=== PATIENT | male | born 1965 | race Caucasian/White ===

== ENCOUNTER 2023-10-04 18:41 | Inpatient (IN) ==
--- NOTE | 2023-10-04 19:38 | XRay Report ---
SINGLE VIEW CHEST CLINICAL HISTORY: Illness. Fever. FINDINGS: An AP upright chest radiograph is obtained. No prior studies are available for comparison a t the time of dictation. The cardiomediastinal silhouette is unremarkable. There are left basilar opa cities. No large pleural effusion or pneumothorax is seen. The bony thorax is grossly intact. IMPRESSION: Airspace opacities at the left lung base could represent atelectasis versus an infectious /inflammatory pneumonitis. Clinical correlation will be required and radiographic follow-up to resolu tion is recommended. ACT 112: Negative or not required by law. Electronically signed by: Richard López M.D. 10/04/2023 7:37 PM
[2023-10-04 20:21] LABS: Appearance Urine Clear (Clear); Bacteria Urine Automated Negative (Negative); Bilirubin Urine Negative (Negative); Blood Urine Trace (Negative); Cast Urine Automated 0 /lpf (0-5); Color Urine Yellow; Epithelial Cell Urine Auto 0-5 /lpf (0-5); Glucose Urine UA Negative (Negative); Ketones Urine Negative (Negative); Leukocyte Esterase Urine Negative (Negative); Nitrite Urine Negative (Negative); Protein Urine Negative (Negative); RBC Urine Automated 0-4 /hpf (0-4); Urobilinogen Urine Negative (Negative); WBC Urine Automated 0 /hpf (0-5)
[2023-10-04] MEDS: SODIUM CHLORIDE 0.9% 1,000 ML IV ONE (22:08)
[2023-10-04] MEDS: ACETAMINOPHEN 1,000 MG/100 ML VIAL IV STA (22:13)
--- NOTE | 2023-10-04 23:00 | Emergency Department Note ---
History of Present Illness General Chief complaint: Illness Stated complaint: GOT 2 VACCINES BODY HURTS ALL OVER, ABNORMAL LABS Time Seen by Provider: 10/04/23 21:28 History of Present Illness Maximum Pain Intensity: 10 This 58-year-old prisoner presents the ER complaining of generalized weakness and difficulty ambulating after receiving 2 vaccines yesterday. He got the pneumonia and shingles vaccine. 1 in each arm. He states after receiving the vaccines his arms are sore and to have his cellmate rub his arms with muscle cream. He states since then he has had increasing pain and weakness from his legs to his head. Patient denies back pain, trauma to the area, vomiting, diarrhea, vision problems. Past Med/Surg History Social History Smoking Status: Former smoker Tobacco Type: Cigarettes Preferred Language: Vietnamese Feels Safe at Home: Yes Review of Systems A total of 10 systems reviewed and were otherwise negative Physical Exam Vital Signs Vital Signs - 24 hr 10/04/23 18:57 10/05/23 00:00 10/05/23 02:00 Temperature 38.0 C H Temperature Source Temporal Artery Scan Pulse Rate 110 H Pulse Rate [Right Finger] 96 H 75 Respiratory Rate 18 16 16 Respiratory Effort / Characteristics Non-Labored Spontaneous Non-Labored Spontaneous Non-Labored Spontaneous Respiratory Depth Normal Normal Normal Respiratory Pattern Regular Regular Regular Blood Pressure 172/96 H Blood Pressure [Right Arm] 116/87 119/76 Blood Pressure Mean 121 Blood Pressure Mean [Right Arm] 96 90 Blood Pressure Position Sitting Pulse Oximetry 94 98 98 Oxygen Delivery Method Room Air Room Air Room Air Sepsis Recent Fever Within 48 Hours No Sepsis New/Unexplained Change in Mental Status N/A Sepsis Action Taken by Nursing No Action Required VITALS: Vitals are noted on the nurse's note and reviewed by myself. Vital signs reviewed. GENERAL: White male in shackles quite talkative moving arms without difficulties, in no acute distress, nondiaphoretic, well-developed well- nourished. SKIN: The skin was without rashes, erythema, edema, or bruising. There is no tenting of the skin. Capillary reflex less than 2 seconds. HEAD: Normocephalic atraumatic. EARS: External auditory canals clear EYES: Pupils equal round and reactive to light and accommodation. Conjunctivae without injection, sclerae without icterus. Extraocular movements intact. NOSE: Patent, no discharge. MOUTH: Mucous membranes moist. Pharynx without erythema or exudate. Uvula midline. Airway patent. Tongue does not deviate. NECK: Supple without nuchal rigidity. No lymphadenopathy. No thyromegaly. Cervical spine is nontender. No JVD. HEART: Regular rate and rhythm LUNGS: Clear to auscultation bilaterally without wheezes, rales or rhonchi. No retractions or accessory muscle use. ABDOMEN: Positive bowel sounds x 4. Normal tympanic percussion. Soft, nontender, without masses or organomegaly. Flores sign negative. No guarding or rebound tenderness. No CVA tenderness MUSCULOSKELETAL: No muscle atrophy, erythema, or edema noted. Patient states he is unable to lift his legs. When I lift the legs they dropped to the ground. He is moving his arms without difficulties. He is able to feel me squeezed his cast without difficulty. NEURO: Patient was alert and oriented to person place and time. Normal sensation to light and sharp touch. No focal neurological deficits. Reflexes +2 to the lower extremities bilaterally. Course Administered Medications Discontinued Medications Sodium Chloride (Nss) 1,000 mls @ 999 mls/hr IV .Q1H1M ONE Stop: 10/04/23 22:45 Last Infusion: 10/05/23 01:58 Dose: Infused Documented By: Admin: 10/04/23 22:08 Dose: 999 mls/hr Documented By: BRANDO Acetaminophen (Ofirmev) 1,000 mg in 100 mls @ 400 mls/hr IV NOW STA Stop: 10/04/23 22:23 Last Infusion: 10/04/23 22:29 Dose: Infused Documented By: Admin: 10/04/23 22:13 Dose: 400 mls/hr Documented By: BRANDO Acetaminophen (Ofirmev) 1,000 mg in 100 mls @ 400 mls/hr IV NOW STA Stop: 10/05/23 00:39 Last Infusion: 10/05/23 01:31 Dose: Infused Documented By: Admin: 10/05/23 01:04 Dose: 400 mls/hr Documented By: FLORIAN Ioversol (Optiray 320 125ml) 116 ml IV ONCE ONE Stop: 10/05/23 00:26 Last Admin: 10/05/23 00:26 Dose: 116 ml Documented By: PENNIE Medical Decision Making Medical Records Attestation: I reviewed the patient's medical records. Home Medications Current Medication List: was personally reviewed by me Laboratory Data Attestation: I reviewed the patient's lab results. 10/04/23 22:44 10/04/23 22:44 Lab Results 10/04/23 10/04/23 10/05/23 Range/Units 20:00 22:44 00:03 WBC 14.43 H (4.8-10.8) K/ul RBC 4.53 L (4.70-6.10) M/uL Hgb 14.7 (14.0-18.0) g/dl Hct 41.3 L (42.0-52.0) % MCV 91.2 (80.0-100.0) fL MCH 32.5 (25.0-34.0) pg MCHC 35.6 (32.0-36.0) g/dL RDW Std Deviation 42.6 (36.4-46.3) fL RDW Coeff of Luke 12.8 (11.5-14.5) % Plt Count 391 (130-400) K/uL MPV 10.3 (9.4-12.4) fL Immature Gran % (Auto) 0.3 % Neut % (Auto) 82.2 % Lymph % (Auto) 9.8 % [place] % (Auto) 7.3 % Eos % (Auto) 0.1 % Baso % (Auto) 0.3 % Neut # (Auto) 11.86 H (1.40-6.50) K/uL Lymph # (Auto) 1.42 (1.20-3.40) K/uL [place] # (Auto) 1.05 H (0.11-0.59) K/uL Eos # (Auto) 0.01 (0.00-0.50) K/uL Baso # (Auto) 0.04 (0.00-0.20) K/uL Immature Gran # (Auto) 0.05 (0.01-0.20) K/uL ESR 28 H (0-20) mm/hr PT 11.5 (9.0-12.0) Seconds INR 1.1 (0.9-1.1) APTT 27 (21-31) Seconds PTT Ratio 1.0 Sodium 134 L (136-145) mmol/L Potassium 4.2 (3.5-5.1) mmol/L Chloride 103 (98-107) mmol/L Carbon Dioxide 23 (21-32) mmol/L Anion Gap 8 (3-11) BUN 11 (6-23) mg/dl Creatinine 0.99 (0.6-1.4) mg/dl Est Cr Clr Drug Dosing Not Reportable Est GFR ( Amer) 95.5 ml/min Est GFR (Non-Af Amer) 82.4 ml/min BUN/Creatinine Ratio 11.1 (10-20) Glucose 122 H (70-99(Fasting)) mg/dl Lactate 1.2 (0.4-2.0) mmol/L Calcium 9.5 (8.6-10.3) mg/dl Total Bilirubin 0.4 (0.2-1.0) mg/dl AST 15 (13-39) U/L ALT 13 (7-52) U/L Alkaline Phosphatase 66 (34-104) U/L Total Creatine Kinase 62 (30-223) U/L Troponin I High Sens 7.6 (0-20) pg/ml Total Protein 7.5 (6.0-8.3) gm/dl Albumin 4.5 (3.4-5.0) gm/dl Globulin 3.0 (2.5-4.0) gm/dl Albumin/Globulin Ratio 1.5 (0.9-2) Procalcitonin 0.09 (0-0.5) ng/ml Urine Color Yellow Urine Appearance Clear (Clear) Urine pH 8.0 H (4.5-7.5) Ur Specific [place] 1.010 (1.000-1.030) Urine Protein Negative (Negative) Urine Glucose (UA) Negative (Negative) Urine Ketones Negative (Negative) Urine Blood Trace H (Negative) Urine Nitrite Negative (Negative) Urine Bilirubin Negative (Negative) Urine Urobilinogen Negative (Negative) Ur Leukocyte Esterase Negative (Negative) Urine WBC (Auto) 0 (0-5) /hpf Urine RBC (Auto) 0-4 (0-4) /hpf U Hyaline Cast (Auto) 0 (0-5) /lpf U Epithel Cells (Auto) 0-5 (0-5) /lpf Urine Bacteria (Auto) Negative (Negative) Imaging Data Attestation: I personally reviewed and interpreted this imaging study as follows: Radiologist's Impression: Chest X-Ray 10/04/23 19:03 SINGLE VIEW CHEST CLINICAL HISTORY: Illness. Fever. FINDINGS: An AP upright chest radiograph is obtained. No prior studies are available for comparison at the time of dictation. The cardiomediastinal silhouette is unremarkable. There are left basilar opacities. No large pleural effusion or pneumothorax is seen. The bony thorax is grossly intact. IMPRESSION: Airspace opacities at the left lung base could represent atelectasis versus an infectious/inflammatory pneumonitis. Clinical correlation will be required and radiographic follow-up to resolution is recommended. ACT 112: Negative or not required by law. Electronically signed by: Richard López M.D. 10/04/2023 7:37 PM Abdomen/Pelvis CT 10/04/23 21:45 Exam(s): CT ABDOMEN + PELVIS With Contrast IV Amt: 116 ML OPTIRAY 320 EXAM: CT Abdomen and Pelvis With Intravenous Contrast CLINICAL HISTORY: Reason for exam: severe pain. TECHNIQUE: Axial computed tomography images of the abdomen and pelvis with intravenous contrast. CTDI is 26.51 mGy and DLP is 1412.83 mGy-cm. Automated exposure control was utilized for the study. A dose lowering technique was utilized adhering to the principles of ALARA. CONTRAST: Patient received 116 ML OPTIRAY 320 of IV contrast COMPARISON: No relevant prior studies available. FINDINGS: ABDOMEN: Liver: Unremarkable. Gallbladder and bile ducts: Status post cholecystectomy. Pancreas: Unremarkable. Spleen: Unremarkable. Adrenals: Unremarkable. Kidneys and ureters: Unremarkable. No obstructing stones. No hydronephrosis. Stomach and bowel: Unremarkable. PELVIS: Appendix: No findings to suggest acute appendicitis. Bladder: Unremarkable. Reproductive: Unremarkable as visualized. ABDOMEN and PELVIS: Intraperitoneal space: Unremarkable. No free air. No significant fluid collection. Bones/joints: No acute fracture. Soft tissues: Unremarkable. Vasculature: Unremarkable. Lymph nodes: Unremarkable. IMPRESSION: No acute abnormality within the abdomen or pelvis. Electronically signed by: Carlos Field MD 10/05/23 00:43 AM Chest CTA 10/04/23 21:45 Exam(s): CTA CHEST IV Amt: 116 ML OPTIRAY 320 EXAM: CT Angiography Chest With Intravenous Contrast CLINICAL HISTORY: Reason for exam: PE, 2 vax yesterday. TECHNIQUE: Axial computed tomographic angiography images of the chest with intravenous contrast. CTDI is 27.17 mGy and DLP is 938.39 mGy-cm. Automated exposure control was utilized for the study. A dose lowering technique was utilized adhering to the principles of ALARA. MIP reconstructed images were created and reviewed. COMPARISON: No relevant prior studies available. FINDINGS: Pulmonary arteries: No pulmonary embolism. Aorta: No acute findings. Normal caliber. No dissection. Lungs: Unremarkable. Pleural space: Unremarkable. Heart: Unremarkable. Thyroid: Left thyroid nodule measuring 2 cm. Bones/joints: No acute fracture. Soft tissues: Unremarkable. Lymph nodes: Unremarkable. IMPRESSION: 1. No pulmonary embolism. 2. No acute abnormality within the lungs. 3. Left thyroid nodule measuring 2 cm. Consider nonemergent outpatient thyroid ultrasound. Electronically signed by: Carlos Field MD 10/05/23 00:[address] 10/04/23 21:45 Exam(s): CT HEAD Without Contrast EXAM: CT Head Without Intravenous Contrast CLINICAL HISTORY: Reason for exam: can't walk. 2 vaccines yesterday. TECHNIQUE: Axial computed tomography images of the head/brain without intravenous contrast. CTDI is 36.9 mGy and DLP is 624.41 mGy-cm. Automated exposure control was utilized for the study. A dose lowering technique was utilized adhering to the principles of ALARA. COMPARISON: No relevant prior studies available. FINDINGS: Brain: No hemorrhage, extra-axial fluid collection, mass effect, or edema. Ventricles: Unremarkable. Bones/joints: Unremarkable. No fracture. Soft tissues: Unremarkable. Sinuses: No acute sinusitis. Mastoid air cells: Unremarkable as visualized. IMPRESSION: 1. No acute intracranial abnormality. Electronically signed by: Carlos Field MD 10/05/23 00:42 AM MDM Narrative Prior records/ancillary studies reviewed and summarized above. Nursing notes reviewed. Additional history obtained from correctional officers. The patient's history was concerning for increasing weakness after receiving 2 vaccines. Differential diagnosis: Etiologies such as attention seeking behavior, Guillain-Cole, complication of vaccines, metabolic, infection, hypo/hyperglycemia, electrolyte abnormalities, cardiac sources, intracerebral event, toxicologic, neurologic, as well as others were entertained. Physical examination: As above. ER treatment provided: IV Lock An order was placed for continuous cardiac monitoring. The monitor shows a rate of 60-1 20 with a sinus rhythm per my interpretation. IV fluids and Tylenol ordered On reassessment the patient felt better. Diagnostics interpretation by me: ECG: Ordered for chest pain EKG: Normal sinus, normal intervals, no acute ST-T wave changes. Impression sinus tachycardia 108 independent interpreted by myself The labs Independently Interpreted by myself revealed mild leukocytosis, normal coags, normal LFTs, normal CPK, negative urine Negative lactic Imaging studies: CTs as above I attempted to do the LP on the patient and he adamantly refused once I placed the spinal needle in. He is adamantly refusing the procedure and verbalized understanding that I cannot rule out Guillain-Cole without doing this. He states he does not care and does not want the lumbar puncture. Patient was consented to the lumbar puncture procedure. All questions were answered. Nurse Sen was present. Consultation: A consultation was placed with the hospitalist. The case was discussed and diagnostics were reviewed. The patient was evaluated in the ER for further treatment. Exam and history seem consistent with reported leg weakness. Patient also states that everything hurt on him. I did inform him that most likely he is feeling this way secondary to receiving both vaccines yesterday. Patient was able to get up and go to the bathroom with assistance once he refused a lumbar puncture. He was able to walk back from the bathroom without assistance per nursing staff. He still states his legs felt weak. Medicine was consulted and case was discussed. He will be admitted for further evaluation and workup. Imaging was negative. Stable labs. By the evaluation outlined above emergent etiologies such as electrolyte abnormalities, cardiac sources, intracerebral event, toxologic, abnormalities blood glucose, metabolic, as well as others were deemed relatively unlikely. The pt informed about the findings as listed above. All questions were answered and pleased with the treatment. The chart was completed utilizing [email or web address] Speech voice recognition software. Grammatical errors, random word insertions, pronoun errors, and incomplete sentences are an occassional consequence of this system due to software limitations, ambient noise, and hardware issues. Any formal questions or concerns about the content, text, or information contained within the body of this dictation should be directly addressed to the physician assistant kitchen manager for clarification. Impression & Plan Bilateral leg weakness, Chest pain, Abdominal pain Discharge Plan Visit Data Chief Complaint: Illness Stated Complaint: GOT 2 VACCINES BODY HURTS ALL OVER, ABNORMAL LABS ED Provider: Kota Longoria ED Midlevel Provider: Randa Julio Discharge Problem: Bilateral leg weakness, Chest pain, Abdominal pain Patient Disposition: Admitted As Inpatient Condition: Fair Forms Stand Alone Forms: [facility] Referrals Referrals: Immanuel KAY [Primary Care Provider] -
[2023-10-04 23:07] LABS: Basophils # (auto) 0.04 K/uL (0.00-0.20); Basophils % (auto) 0.3 %; Eosinophils # (auto) 0.01 K/uL (0.00-0.50); Eosinophils % (auto) 0.1 %; Hematocrit (blood only) 41.3 % (42.0-52.0); Hemoglobin 14.7 g/dl (14.0-18.0); Immature Granulocytes # (auto) 0.05 K/uL (0.01-0.20); Immature Granulocytes % (auto) 0.3 %; Lymphocytes # (auto) 1.42 K/uL (1.20-3.40); Lymphocytes % (auto) 9.8 %; Mean Corpuscular Hemoglobin 32.5 pg (25.0-34.0); Mean Corpuscular Hgb Conc 35.6 g/dL (32.0-36.0); Mean Corpuscular Volume 91.2 fL (80.0-100.0); Mean Platelet Volume 10.3 fL (9.4-12.4); Monocytes # (auto) 1.05 K/uL (0.11-0.59); Monocytes % (auto) 7.3 %; Neutrophils # (auto) 11.86 K/uL (1.40-6.50); Neutrophils % (auto) 82.2 %; Platelet Count 391 K/uL (130-400); RDW Coefficient of Variation 12.8 % (11.5-14.5); RDW Standard Deviation 42.6 fL (36.4-46.3); Red Blood Count 4.53 M/uL (4.70-6.10); White Blood Count 14.43 K/ul (4.8-10.8)
[2023-10-04 23:20] LABS: Alanine Aminotransferase 13 U/L (7-52); Albumin Globulin Ratio 1.5 (0.9-2); Albumin Level 4.5 gm/dl (3.4-5.0); Alkaline Phosphatase 66 U/L (34-104); Anion Gap 8 (3-11); Aspartate Aminotransferase 15 U/L (13-39); BUN Creatinine Ratio 11.1 (10-20); Bilirubin,Total 0.4 mg/dl (0.2-1.0); Blood Urea Nitrogen 11 mg/dl (6-23); Calcium 9.5 mg/dl (8.6-10.3); Carbon Dioxide 23 mmol/L (21-32); Chloride 103 mmol/L (98-107); Est GFR (African American) 95.5 ml/min; Est GFR (Non-African American) 82.4 ml/min; Glucose 122 mg/dl (70-99(Fasting)); Potassium 4.2 mmol/L (3.5-5.1); Sodium 134 mmol/L (136-145); Total Protein 7.5 gm/dl (6.0-8.3)
[2023-10-04 23:25] LABS: Troponin I High Sensitivity 7.6 pg/ml (0-20)
[2023-10-04 23:32] LABS: INR 1.1 (0.9-1.1); Partial Thromboplastin Time 27 Seconds (21-31); Prothrombin Time 11.5 Seconds (9.0-12.0)
[2023-10-05] MEDS: OPTIRAY 320 125ml IV ONE ×2 (00:26→17:00)
--- NOTE | 2023-10-05 00:42 | CT Scan Report ---
Exam(s): CT HEAD Without Contrast EXAM: CT Head Without Intravenous Contrast CLINICAL HISTORY: Reason for exam: can't walk. 2 vaccines yesterday. TECHNIQUE: Axial computed tomography images of the head/brain without intravenous contrast. CTDI is 36.9 mGy and DLP is 624.41 mGy-cm. Automated exposure control was utilized for the study. A dose lowering technique was utilized adhering to the principles of ALARA. COMPARISON: No relevant prior studies available. FINDINGS: Brain: No hemorrhage, extra-axial fluid collection, mass effect, or edema. Ventricles: Unremarkable. Bones/joints: Unremarkable. No fracture. Soft tissues: Unremarkable. Sinuses: No acute sinusitis. Mastoid air cells: Unremarkable as visualized. IMPRESSION: 1. No acute intracranial abnormality. Electronically signed by: Carlos Field MD 10/05/23 00:42 AM
--- NOTE | 2023-10-05 00:44 | CT Scan Report ---
Exam(s): CT ABDOMEN + PELVIS With Contrast IV Amt: 116 ML OPTIRAY 320 EXAM: CT Abdomen and Pelvis With Intravenous Contrast CLINICAL HISTORY: Reason for exam: severe pain. TECHNIQUE: Axial computed tomography images of the abdomen and pelvis with intravenous contrast. CTDI is 26.51 mGy and DLP is 1412.83 mGy-cm. Automated exposure control was utilized for the study. A dose lowering technique was utilized adhering to the principles of ALARA. CONTRAST: Patient received 116 ML OPTIRAY 320 of IV contrast COMPARISON: No relevant prior studies available. FINDINGS: ABDOMEN: Liver: Unremarkable. Gallbladder and bile ducts: Status post cholecystectomy. Pancreas: Unremarkable. Spleen: Unremarkable. Adrenals: Unremarkable. Kidneys and ureters: Unremarkable. No obstructing stones. No hydronephrosis. Stomach and bowel: Unremarkable. PELVIS: Appendix: No findings to suggest acute appendicitis. Bladder: Unremarkable. Reproductive: Unremarkable as visualized. ABDOMEN and PELVIS: Intraperitoneal space: Unremarkable. No free air. No significant fluid collection. Bones/joints: No acute fracture. Soft tissues: Unremarkable. Vasculature: Unremarkable. Lymph nodes: Unremarkable. IMPRESSION: No acute abnormality within the abdomen or pelvis. Electronically signed by: Carlos Field MD 10/05/23 00:43 AM
--- NOTE | 2023-10-05 00:46 | CT Scan Report ---
Exam(s): CTA CHEST IV Amt: 116 ML OPTIRAY 320 EXAM: CT Angiography Chest With Intravenous Contrast CLINICAL HISTORY: Reason for exam: PE, 2 vax yesterday. TECHNIQUE: Axial computed tomographic angiography images of the chest with intravenous contrast. CTDI is 27.17 mGy and DLP is 938.39 mGy-cm. Automated exposure control was utilized for the study. A dose lowering technique was utilized adhering to the principles of ALARA. MIP reconstructed images were created and reviewed. COMPARISON: No relevant prior studies available. FINDINGS: Pulmonary arteries: No pulmonary embolism. Aorta: No acute findings. Normal caliber. No dissection. Lungs: Unremarkable. Pleural space: Unremarkable. Heart: Unremarkable. Thyroid: Left thyroid nodule measuring 2 cm. Bones/joints: No acute fracture. Soft tissues: Unremarkable. Lymph nodes: Unremarkable. IMPRESSION: 1. No pulmonary embolism. 2. No acute abnormality within the lungs. 3. Left thyroid nodule measuring 2 cm. Consider nonemergent outpatient thyroid ultrasound. Electronically signed by: Carlos Field MD 10/05/23 00:44 AM
[2023-10-05 00:59] LABS: Creatine Kinase 62 U/L (30-223)
[2023-10-05] MEDS: ACETAMINOPHEN 1,000 MG/100 ML VIAL IV STA (01:04)
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
[2023-10-05] MEDS: traZODone HCL 50 MG TAB PO STA (03:48)
[2023-10-05] MEDS: OXcarbazepine 150 MG TABLET PO STA (03:48)
[2023-10-05] MEDS: TAMSULOSIN HCL 0.4 MG CAP PO ONE (03:48)
[2023-10-05] MEDS: DOXEPIN HCL 50 MG CAPSULE PO STA (03:48)
[2023-10-05] MEDS: KETOROLAC TROMETHAMINE 15 MG/ML VIAL IV ONE (03:49)
[2023-10-05] MEDS ORDERED: ALBUTEROL HFA 8 GM INHALER INH PRN (04:07)
[2023-10-05] MEDS ORDERED: NITROGLYCERIN SL 0.4 MG/TAB TAB SL PRN (04:07)
[2023-10-05] MEDS ORDERED: ONDANSETRON INJ 2 MG/ML 2 ML VIAL IV PRN (04:07)
[2023-10-05] MEDS: SODIUM CHLORIDE 0.9% 1,000 ML IV SCH (04:26)
[2023-10-05 04:45] LABS: Basophils # (auto) 0.04 K/uL (0.00-0.20); Basophils % (auto) 0.3 %; Eosinophils # (auto) 0.01 K/uL (0.00-0.50); Eosinophils % (auto) 0.1 %; Hematocrit (blood only) 41.7 % (42.0-52.0); Hemoglobin 14.5 g/dl (14.0-18.0); Immature Granulocytes # (auto) 0.08 K/uL (0.01-0.20); Immature Granulocytes % (auto) 0.5 %; Lymphocytes # (auto) 1.46 K/uL (1.20-3.40); Mean Corpuscular Hemoglobin 31.9 pg (25.0-34.0); Mean Corpuscular Hgb Conc 34.8 g/dL (32.0-36.0); Mean Corpuscular Volume 91.9 fL (80.0-100.0); Monocytes # (auto) 1.45 K/uL (0.11-0.59); Monocytes % (auto) 9.9 %; Neutrophils # (auto) 11.58 K/uL (1.40-6.50); Neutrophils % (auto) 79.2 %; Platelet Count 375 K/uL (130-400); RDW Standard Deviation 43.7 fL (36.4-46.3); Red Blood Count 4.54 M/uL (4.70-6.10); White Blood Count 14.62 K/ul (4.8-10.8)
[2023-10-05 04:58] LABS: Albumin Level 4.3 gm/dl (3.4-5.0); BUN Creatinine Ratio 11.8 (10-20); Bilirubin Direct 0.1 mg/dl (0-0.2); Bilirubin,Total 0.5 mg/dl (0.2-1.0); Calcium 9.5 mg/dl (8.6-10.3); Creatinine Clr Calc Pharmacy 89.4 ml/min; Est GFR (African American) 103.1 ml/min; Est GFR (Non-African American) 88.9 ml/min; Magnesium 1.9 mg/dl (1.7-2.4); Potassium 4.2 mmol/L (3.5-5.1); Total Protein 7.3 gm/dl (6.0-8.3)
[2023-10-05 05:34] LABS: Adenovirus PCR Not Detected (NotDetected); Bordetella parapertussis PCR Not Detected (NotDetected); Bordetella pertussis PCR Not Detected (NotDetected); Chlamydia pneumoniae PCR Not Detected (NotDetected); Coronavirus 229E PCR Not Detected (NotDetected); Coronavirus CoV-2 (COVID19)PCR Not Detected (NotDetected); Coronavirus HKU1 PCR Not Detected (NotDetected); Coronavirus NL63 PCR Not Detected (NotDetected); Coronavirus OC43PCR Not Detected (NotDetected); Human Metapneumovirus PCR Not Detected (NotDetected); Influenza A PCR Not Detected (NotDetected); Influenza B PCR Not Detected (NotDetected); Mycoplasma pneumoniae PCR Not Detected (NotDetected); Parainfluenza Virus 1 PCR Not Detected (NotDetected); Parainfluenza Virus 2 PCR Not Detected (NotDetected); Parainfluenza Virus 3 PCR Not Detected (NotDetected); Parainfluenza Virus 4 PCR Not Detected (NotDetected); Respiratory Syncytial VirusPCR Not Detected (NotDetected); Rhinovirus/Enterovirus PCR Not Detected (NotDetected)
[2023-10-05] MEDS: ENOXAPARIN INJ 40 MG/0.4 ML SYR SQ SCH (09:15)
[2023-10-05] MEDS: MONTELUKAST SODIUM 10 MG TABLET PO SCH (09:16)
[2023-10-05] MEDS: DOXEPIN HCL 25 MG CAPSULE PO SCH (09:16)
[2023-10-05] MEDS: FINASTERIDE 5 MG TAB PO SCH (09:16)
[2023-10-05] MEDS: OXcarbazepine 150 MG TABLET PO SCH (09:16)
--- NOTE | 2023-10-05 11:41 | Electrocardiogram Report ---
Test Reason : Blood Pressure : / mmHG Vent. Rate : 108 BPM Atrial Rate : 108 BPM P-R Int : 152 ms QRS Dur : 080 ms QT Int : 310 ms P-R-T Axes : 051 009 033 degrees QTc Int : 415 ms Sinus tachycardia Nonspecific ST abnormality Abnormal ECG No previous ECGs available Confirmed by Andry Hameed ([id number]) on 10/05/2023 11:41:34 AM Referred By: [facility] Confirmed By:Andry Hameed
[2023-10-05] MEDS: HYDROmorphone INJ 0.5 MG/0.5 ML SYR IV PRN (16:12)
--- NOTE | 2023-10-05 16:31 | Neurology Consultation ---
Date of Consultation October 05, 2023 Assessment & Plan (1) Weakness of extremity: Reports weakness in all extremities Notably has two vaccines 2-3 days ago after which he reports new onset symptoms Neurological exam limited but appreciate appearance of weakness in all extremities Recommend MRI brain, cervical thoracic and lumbar spine both with and without contrast Recommend LP to eval for RECRUITER MANAGER infection, GBS antibodies, cell count, protein level Recommend monitor NIF, VC frequently Recommend continue to monitor vital signs for evidence of dysautonomia Recommend initiate plasma exchange or IVIG daily as there is concern for possible acute demyelinating polyradiculopathy Recommend EMG, check inflammatory markers, CPK to eval for myositis Continue to monitor renal and hepatic function VTE prophylaxis if not fully anticoagulated Will benefit from aggressive therapy/rehabilitative services (2) Headache: Reports severe headache Able to touch chin to chest and rotate cervical spine but reports pain Monitor/control pain Monitor for fever/monitor vitals Recommend continue to monitor for s/s of infection Recommend lumbar puncture to assess for RECRUITER MANAGER infection Telehealth Consultation Telehealth Information Telehealth Information: I performed this visit using a real-time telehealth connection between my location and the patients location ([facility]). After connecting through interactive tele-video, patient was identified by name and date of and/or wristband check.Patient (or authorized healthcare manufacturing sales representative) was informed that this was a telemedicine visit and it was being conducted confidentially over secure lines. My office door was closed and no one else was present in the room with me.Patient (or authorized healthcare repr esentative) provided consent to proceed with the visit, expressed an understanding of privacy and security of the telemedicine visit, and gave permission to have a hospital manufacturing sales representative in the room in order to assist with the visit and to conduct portions of the visit, as needed. I informed the patient (or authorized healthcare manufacturing sales representative) that I reviewed their record and presented the opportunity for them to ask any questions regarding the visit today. The patient agreed to participate. History of Present Illness Reason for Consultation: BLE weakness, concern for GBS following vaccination Requesting Physician: Dr. Hamm Attending Physician: Malina aHmm MD History of Present Illness 58 year old male presents with report of painful body aches and lower extremity weakness. Reportedly unable to ambulate. He refused a lumbar puncture now after reportedly attempted in ER stating "when they tried it, he felt too much pain, it was too painful". Now complaining of severe headache and weakness in all extremities. Notably he received shingles and pneumococcal vaccines 2-3days ago. He was noted to have fever in ER. Performed televideo consultation. HE is alert and oriented able to answer questions without difficulty. Can read passages name objects and repeat phrases without difficulty. Demonstrates the appearance of weakness in all extremities. Difficult to accurately assess reflexes or sensation. He continues to reports severe headache. He has undergone CT brain without contrast revealing no overt acute intracranial pathology. Denies chest pain/palpitations or shortness of breath. At this time, no reported changes in vision hearing dizziness syncope seizure like activity. Currently denies recent chills nausea vomiting changes in bowels or bladder. Denies recent medication changes, recent illness or sick contacts, no reported recent travel. Allergies Allergy/AdvReac Type Severity Reaction Status Date / Time bee venom protein (honey bee) Allergy Unknown Verified 10/05/23 03:27 Penicillins Allergy Unknown Verified 10/05/23 03:27 Home Medications Medication Instructions Recorded Confirmed Type albuterol sulfate 90 mcg/actuation 2 puff inhalation QID PRN 10/05/23 10/05/23 History aerosol inhaler Shortness Of Breath Or Wheezing doxepin 100 mg capsule 100 mg PO HS 10/05/23 10/05/23 History doxepin 25 mg capsule 25 mg PO DAILY 10/05/23 10/05/23 History dutasteride 0.5 mg capsule 0.5 mg PO DAILY 10/05/23 10/05/23 History (Avodart) montelukast 10 mg tablet 10 mg PO DAILY 10/05/23 10/05/23 History oxcarbazepine 300 mg tablet 300 mg PO BID 10/05/23 10/05/23 History (Trileptal) tamsulosin 0.4 mg capsule (Flomax) 0.8 mg PO HS 10/05/23 10/05/23 History trazodone 50 mg tablet 50 mg PO HS 10/05/23 10/05/23 History Patient History Social History Smoking Status: Former smoker Tobacco Type: Cigarettes Hx Alcohol Use: No Hx Substance Use: Yes Last Used Substance Other:: years, PT has been in residential x1 year Preferred Language: Portuguese Communication Ability: Effective Automatic Pattern Edger Required: No Beliefs That Will Affect Care: None Current Living Situation: Other Current Living Situation Comment: [facility] Feels Safe at Home: Yes Assistive Devices: None Physical Exam Neurological Examination: Mental Status: Awake and alert. Oriented to person, place, and time. Fluency naming repetition and comprehension appear grossly intact. Affect remains appropriate. Continue to report headache CN testing: I: Denies changes in ability to smell II:Reports no changes in visual acuity III/IV/: No evidence of gaze preference, hippus, nystagmus or roving eye movements V: Facial sensation is difficult to reliably assess VII: Facial movements appear without evidence of asymmetry VIII: Hearing appears grossly intact to loud voice bilaterally IX/X: Palate is unable to be accurately visualized XI: Shoulder shrug appears symmetric/ grossly intact bilaterally XII: Tongue protrudes midline without evidence of biting Motor exam: Strength appears diminished in all extremities Sensory: Is difficult to reliably assess Coordination: Deferred Reflexes: Difficult to reliably assess Gait: Deferred Results & Data Vital Signs (Past 12 Hours) Vital Signs Temp Pulse Pulse Resp BP BP Pulse Ox 10/05/23 16:00 82 24 119/69 94 10/05/23 15:31 68 10/05/23 15:00 73 24 120/70 96 10/05/23 14:26 118/74 95 10/05/23 14:22 96 10/05/23 13:00 73 18 10/05/23 13:00 124/69 10/05/23 12:00 67 18 119/65 10/05/23 11:00 77 19 103/64 10/05/23 09:00 109/66 10/05/23 09:00 75 21 93 10/05/23 08:00 69 18 95 10/05/23 08:00 105/65 10/05/23 07:02 61 10/05/23 07:01 64 20 98 10/05/23 07:00 63 20 94 10/05/23 07:00 91/55 L 10/05/23 06:00 113/72 10/05/23 06:00 87 20 94 10/05/23 05:22 36.9 C 90 14 115/75 93 10/05/23 05:00 115/75 10/05/23 05:00 95 H 20 92 10/05/23 04:37 88 16 98/76 L 98 O2 Del Method 10/05/23 16:00 02/16/24 15:31 10/05/23 15:00 10/05/23 14:26 10/05/23 14:22 10/05/23 13:00 10/05/23 13:00 10/05/23 12:00 10/05/23 11:00 10/05/23 09:00 10/05/23 09:00 10/05/23 08:00 10/05/23 08:00 10/05/23 07:02 10/05/23 07:01 Room Air 10/05/23 07:00 10/05/23 07:00 10/05/23 06:00 10/05/23 06:00 10/05/23 05:22 Room Air 10/05/23 05:00 10/05/23 05:00 10/05/23 04:37 Room Air Laboratory Results Abnormal lab results 10/04/23 10/04/23 10/05/23 Range/Units 20:00 22:44 04:27 WBC 14.43 H 14.62 H (4.8-10.8) K/ul RBC 4.53 L 4.54 L (4.70-6.10) M/uL Hct 41.3 L 41.7 L (42.0-52.0) % Neut # (Auto) 11.86 H 11.58 H (1.40-6.50) K/uL Lander # (Auto) 1.05 H 1.45 H (0.11-0.59) K/uL ESR 28 H (0-20) mm/hr Sodium 134 L 134 L (136-145) mmol/L Glucose 122 H 125 H (70-99(Fasting)) mg/dl Urine pH 8.0 H (4.5-7.5) Urine Blood Trace H (Negative) Diagnostic Findings Chest X-Ray 10/04/23 19:03 SINGLE VIEW CHEST CLINICAL HISTORY: Illness. Fever. FINDINGS: An AP upright chest radiograph is obtained. No prior studies are available for comparison at the time of dictation. The cardiomediastinal silhouette is unremarkable. There are left basilar opacities. No large pleural effusion or pneumothorax is seen. The bony thorax is grossly intact. IMPRESSION: Airspace opacities at the left lung base could represent atelectasis versus an infectious/inflammatory pneumonitis. Clinical correlation will be required and radiographic follow-up to resolution is recommended. ACT 112: Negative or not required by law. Electronically signed by: Richard López M.D. 10/04/2023 7:37 PM Abdomen/Pelvis CT 10/04/23 21:45 Exam(s): CT ABDOMEN + PELVIS With Contrast IV Amt: 116 ML OPTIRAY 320 EXAM: CT Abdomen and Pelvis With Intravenous Contrast CLINICAL HISTORY: Reason for exam: severe pain. TECHNIQUE: Axial computed tomography images of the abdomen and pelvis with intravenous contrast. CTDI is 26.51 mGy and DLP is 1412.83 mGy-cm. Automated exposure control was utilized for the study. A dose lowering technique was utilized adhering to the principles of ALARA. CONTRAST: Patient received 116 ML OPTIRAY 320 of IV contrast COMPARISON: No relevant prior studies available. FINDINGS: ABDOMEN: Liver: Unremarkable. Gallbladder and bile ducts: Status post cholecystectomy. Pancreas: Unremarkable. Spleen: Unremarkable. Adrenals: Unremarkable. Kidneys and ureters: Unremarkable. No obstructing stones. No hydronephrosis. Stomach and bowel: Unremarkable. PELVIS: Appendix: No findings to suggest acute appendicitis. Bladder: Unremarkable. Reproductive: Unremarkable as visualized. ABDOMEN and PELVIS: Intraperitoneal space: Unremarkable. No free air. No significant fluid collection. Bones/joints: No acute fracture. Soft tissues: Unremarkable. Vasculature: Unremarkable. Lymph nodes: Unremarkable. IMPRESSION: No acute abnormality within the abdomen or pelvis. Electronically signed by: Carlos Field MD 10/05/23 00:43 AM Chest CTA 10/04/23 21:45 Exam(s): CTA CHEST IV Amt: 116 ML OPTIRAY 320 EXAM: CT Angiography Chest With Intravenous Contrast CLINICAL HISTORY: Reason for exam: PE, 2 vax yesterday. TECHNIQUE: Axial computed tomographic angiography images of the chest with intravenous contrast. CTDI is 27.17 mGy and DLP is 938.39 mGy-cm. Automated exposure control was utilized for the study. A dose lowering technique was utilized adhering to the principles of ALARA. MIP reconstructed images were created and reviewed. COMPARISON: No relevant prior studies available. FINDINGS: Pulmonary arteries: No pulmonary embolism. Aorta: No acute findings. Normal caliber. No dissection. Lungs: Unremarkable. Pleural space: Unremarkable. Heart: Unremarkable. Thyroid: Left thyroid nodule measuring 2 cm. Bones/joints: No acute fracture. Soft tissues: Unremarkable. Lymph nodes: Unremarkable. IMPRESSION: 1. No pulmonary embolism. 2. No acute abnormality within the lungs. 3. Left thyroid nodule measuring 2 cm. Consider nonemergent outpatient thyroid ultrasound. Electronically signed by: Carlos Field MD 10/05/23 00:[address] 10/04/23 21:45 Exam(s): CT HEAD Without Contrast EXAM: CT Head Without Intravenous Contrast CLINICAL HISTORY: Reason for exam: can't walk. 2 vaccines yesterday. TECHNIQUE: Axial computed tomography images of the head/brain without intravenous contrast. CTDI is 36.9 mGy and DLP is 624.41 mGy-cm. Automated exposure control was utilized for the study. A dose lowering technique was utilized adhering to the principles of ALARA. COMPARISON: No relevant prior studies available. FINDINGS: Brain: No hemorrhage, extra-axial fluid collection, mass effect, or edema. Ventricles: Unremarkable. Bones/joints: Unremarkable. No fracture. Soft tissues: Unremarkable. Sinuses: No acute sinusitis. Mastoid air cells: Unremarkable as visualized. IMPRESSION: 1. No acute intracranial abnormality. Electronically signed by: Carlos Field MD 10/05/23 00:42 AM
[2023-10-05] MEDS ORDERED: IMMUNE GLOBULIN (HUMAN) SOLN IV ONE (17:06)
--- NOTE | 2023-10-05 17:50 | Communication Note ---
Date of Service: October 05, 2023 The patient was seen and examined in emergency room. 58 years old male without significant past medical history except benign prostatic hypertrophy and depression apparently was brought in with bilateral leg pain, neck pain, abdominal and chest wall pain, headache and occasional blurry of vision. He spiked temperature in the ER and also had shivering at times. Had nausea but no vomiting. All the symptoms happened to be following pneumococcal and shingles vaccine about 2 to 3 days back. He had a failed lumbar puncture last night and since then refusing any further lumbar puncture. He was seen by me in the emergency room and noted to have impaired sensation in the extremities(legs) and very minimal power/no power in the extremities and no reflexes. His neck was painful with movement but did not have typical neck stiffness. Otherwise hemodynamically stable and afebrile.Denies any problem with breathing. He was seen by neurologist and advised to have lumbar puncture and imaging studies which were ordered. Lumbar puncture could not be done as he received Lovenox this morning. Lumbar puncture has to be arranged tomorrow. He was a s tarted with IVIG with a suspicion for Guillain-Cole syndrome and will not start any antibiotics yet. He will be admitted to ICU and monitoring of his breathing as he may need intubation down the line. He was aware about all this conditions and agreed to have what is necessary for his condition to improve. Discussed with the neurologist and the airline managerial supervisor Dr Jeni Hamm
[2023-10-05] MEDS: Octagam 10% IVIG 5 gram bottle IV SCH (18:29)
--- NOTE | 2023-10-05 19:09 | Critical Care Consultation ---
Date of Consultation October 05, 2023 Assessment & Plan (1) Headache: (2) Weakness of extremity: (3) Bilateral leg weakness: (4) Urinary retention: Plan Reason Critically Ill: 58 YOM admitted for muscle weakness that progressed 2 hours post shingles and Pneumovax vaccines, associated with headaches, neck pain and febrile. LP is pending, MRI pending. Admitted to ICU for NIF monitoring and following for any dysautonomia. Neuro - Progressive muscle weakness of extremities, concern for encephalitis vs. religious educator infection vs. guillan barre or combination of the above CAM ICU: NEGATIVE - Nuero exam currently improving with better movement in arms and hands, and flexion of quads/hips - Follow for dysautonomia- HR NSR, Wilder placed for retention, abdomen distended but passing flatus- NGT if progresses or stops passing flatus - Continue IVIG daily per Neurology recommendations - NIF q4 hours goal > -20 - Empiric abx therapy for encephalitis/meningitis as is in custodial - severe allergy to PCN- Meropenem, Acyclovir, Vancomycin- will currently hold on Amp - LP in morning- VTE prophylaxis on hold- restart following LP Cardiac - NO acute needs - Follow HR and hemodynamics Respiratory - - As above - follow for progession of symptoms to involve diaphragm - intubation if needed GI - As above - NPO RENAL/LYTES - No acute needs - Urinary retention, BPH - Patient with history of urinary retention with BPH- however with ongoing concerns for GB and dysautonomia will place wilder catheter- patient was straight cathed x1 in EMD overnight - Remove when appropriate function has returned - would recommend PVR following removal of wilder catheter ENDO - No acute needs HEME - No acute needs- see ID below ID - Headache associated with neck pain, neurological weakness, fever and leuk ocytosis - Will initiate emperic POWERTRAIN ENGINEER dosing for meningitis/encephalitis- patient has throat closing with PCN- will adjust based on severe allergy - Meropenem 2GM IV q8 - Vancomycin- load pharmacy to dose - Acylovir 10mg/kg daily - De-escelate as apporpriate and following LP LINES/IV ACCESS - PIV, Wilder catheter Continue use of these lines DVT PROPHYLAXIS - SCDS, Lovenox sub q- on hold until LP performed DISPO: ICU until proven stable and improving I have personally spent 55 minutes of critical care time in the direct management of this patient. This is a life/limb threatening event. This includes time spent evaluating patient, direct bedside care, chart review, placing orders, interpretation of diagnostic studies, discussion with consultants, patient, and family members, as well as other required patient management activities. This time is exclusive of all separately billable procedures, and teaching time and separate from and in addition to any other critical care service time. Thank you for allowing us to participate in the care of this patient. Please refer to my attending physician's documentation for any further recommendations. History of Present Illness Reason for Consultation: progressive muscle weakness- -concern for guillan barre Requesting Physician: Hansel Radford MD Attending Physician: Malina Hamm MD History of Present Illness 58 YOM who is HD #1 following admission on 10/05/23 early in the morning for arm and leg weakness. Patient reports that he went and got shingles and pneumovac and that about 2 hours after this, he started to experience deep muscle pain in his arms and shoulders, that then went to his face as a burning sensation. The pain went into his hips and then his legs, this was followed by him being weaker in his legs and he sent for the gaurds. The muscle pains were associated with headach 8/10 as well as neck pain and this still remains. He had an LP attempted on admission without success. 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 He was transferred to the ICU for continued monitoring and intervention if airway would become compromised as he was now having weakness in his feet, legs, hips, and arms. Patient will be monitored with NIF evaluations every 4 hours, initiate emperic POWERTRAIN ENGINEER coverage associated with headache, neck stiffness, and fever. He is pending MRI with and without contrast. CODE: FULL Allergies Allergy/AdvReac Type Severity Reaction Status Date / Time bee venom protein (honey bee) Allergy Unknown Verified 10/05/23 03:27 Penicillins Allergy Unknown Verified 10/05/23 03:27 Home Medications Medication Instructions Recorded Confirmed Type albuterol sulfate 90 mcg/actuation 2 puff inhalation QID PRN 10/05/23 10/05/23 History aerosol inhaler Shortness Of Breath Or Wheezing doxepin 100 mg capsule 100 mg PO HS 10/05/23 10/05/23 History doxepin 25 mg capsule 25 mg PO DAILY 10/05/23 10/05/23 History dutasteride 0.5 mg capsule 0.5 mg PO DAILY 10/05/23 10/05/23 History (Avodart) montelukast 10 mg tablet 10 mg PO DAILY 10/05/23 10/05/23 History oxcarbazepine 300 mg tablet 300 mg PO BID 10/05/23 10/05/23 History (Trileptal) tamsulosin 0.4 mg capsule (Flomax) 0.8 mg PO HS 10/05/23 10/05/23 History trazodone 50 mg tablet 50 mg PO HS 10/05/23 10/05/23 History Patient History Social History Smoking Status: Former smoker Tobacco Type: Cigarettes Hx Alcohol Use: No Hx Substance Use: Yes Last Used Substance Other:: years, PT has been in custodial x1 year Preferred Language: Bahamian Communication Ability: Effective Tool Room Attendant Required: No Beliefs That Will Affect Care: None Current Living Situation: Other Current Living Situation Comment: Custodial Feels Safe at Home: Yes Assistive Devices: None Review of Systems Review of Systems: REVIEW OF SYSTEMS: Constitutional: + fevers chills myalgias Eyes: No diplopia, no worsening or blurred vision ENT: normal hearing, no trouble swallowing Respiratory: No cough, sputum, dyspnea at rest or on exertion Cardiovascular: No chest pain, tightness or palpitations Abdomen: + distention, no pain pain, nausea, vomiting, diarrhea or constipation Musculoskeletal: + pain to arms, lower legs, with weakness in legs Psychiatric: No anxiety or depression Skin: No rash or itch Physical Exam Physical Exam: PHYSICAL EXAM: General: awake, alert, Head: Normocephalic, atraumatic ENT: PERRLA, EOMI, no pharyngeal exudate, mucous membranes moist Neuro: AAO x 3, speech clear and appropriate, strength intact bilaterally 0/5 to legs- he is able to flex his quads, sensation is intact all dermatomes, he is with 3/5 strength to amrs and hands, sensation intact shoulders, arms, hands, chest, posterior and headache to top of head. Chest: equal rise and fall of the chest, no accessory muscle use, no heaves or thrills, Clear to auscultation, on room air, Cardiac: Regular rate and rhythm, telemetry reviewed, skin warm dry, cap refill <3 seconds, peripheral pulses +2 no JVD, no murmur, no edema GI: NABS x 4 quadrants, softly distended, passing flatus, urinary retention noted : Wilder to gravity Psych: Normal mood and affect Skin: no rash or erythema Results & Data Results & Data Vital Signs (Past 12 Hours) Vital Signs Pulse Pulse Resp BP BP Pulse Ox O2 Del Method 10/05/23 19:05 67 19 126/72 95 Room Air 10/05/23 18:45 75 19 126/72 94 Room Air 10/05/23 18:30 70 21 120/84 94 Room Air 10/05/23 16:00 82 24 119/69 94 10/05/23 15:31 68 10/05/23 15:00 73 24 120/70 96 10/05/23 14:26 118/74 95 10/05/23 14:22 96 10/05/23 13:00 73 18 10/05/23 13:00 124/69 10/05/23 12:00 67 18 119/65 10/05/23 11:00 77 19 103/64 10/05/23 09:00 109/66 10/05/23 09:00 75 21 93 10/05/23 08:00 69 18 95 10/05/23 08:00 105/65 Laboratory Results Abnormal lab results 10/04/23 10/05/23 Range/Units 22:44 04:27 WBC 14.43 H 14.62 H (4.8-10.8) K/ul RBC 4.53 L 4.54 L (4.70-6.10) M/uL Hct 41.3 L 41.7 L (42.0-52.0) % Neut # (Auto) 11.86 H 11.58 H (1.40-6.50) K/uL [place] # (Auto) 1.05 H 1.45 H (0.11-0.59) K/uL ESR 28 H (0-20) mm/hr Sodium 134 L 134 L (136-145) mmol/L Glucose 122 H 125 H (70-99(Fasting)) mg/dl Diagnostic Findings Chest X-Ray 10/04/23 19:03 SINGLE VIEW CHEST CLINICAL HISTORY: Illness. Fever. FINDINGS: An AP upright chest radiograph is obtained. No prior studies are available for comparison at the time of dictation. The cardiomediastinal silhouette is unremarkable. There are left basilar opacities. No large pleural effusion or pneumothorax is seen. The bony thorax is grossly intact. IMPRESSION: Airspace opacities at the left lung base could represent atelectasis versus an infectious/inflammatory pneumonitis. Clinical correlation will be required and radiographic follow-up to resolution is recommended. ACT 112: Negative or not required by law. Electronically signed by: Richard López M.D. 10/04/2023 7:37 PM Abdomen/Pelvis CT 10/04/23 21:45 Exam(s): CT ABDOMEN + PELVIS With Contrast IV Amt: 116 ML OPTIRAY 320 EXAM: CT Abdomen and Pelvis With Intravenous Contrast CLINICAL HISTORY: Reason for exam: severe pain. TECHNIQUE: Axial computed tomography images of the abdomen and pelvis with intravenous contrast. CTDI is 26.51 mGy and DLP is 1412.83 mGy-cm. Automated exposure control was utilized for the study. A dose lowering technique was utilized adhering to the principles of ALARA. CONTRAST: Patient received 116 ML OPTIRAY 320 of IV contrast COMPARISON: No relevant prior studies available. FINDINGS: ABDOMEN: Liver: Unremarkable. Gallbladder and bile ducts: Status post cholecystectomy. Pancreas: Unremarkable. Spleen: Unremarkable. Adrenals: Unremarkable. Kidneys and ureters: Unremarkable. No obstructing stones. No hydronephrosis. Stomach and bowel: Unremarkable. PELVIS: Appendix: No findings to suggest acute appendicitis. Bladder: Unremarkable. Reproductive: Unremarkable as visualized. ABDOMEN and PELVIS: Intraperitoneal space: Unremarkable. No free air. No significant fluid collection. Bones/joints: No acute fracture. Soft tissues: Unremarkable. Vasculature: Unremarkable. Lymph nodes: Unremarkable. IMPRESSION: No acute abnormality within the abdomen or pelvis. Electronically signed by: Carlos Field MD 10/05/23 00:43 AM Chest CTA 10/04/23 21:45 Exam(s): CTA CHEST IV Amt: 116 ML OPTIRAY 320 EXAM: CT Angiography Chest With Intravenous Contrast CLINICAL HISTORY: Reason for exam: PE, 2 vax yesterday. TECHNIQUE: Axial computed tomographic angiography images of the chest with intravenous contrast. CTDI is 27.17 mGy and DLP is 938.39 mGy-cm. Automated exposure control was utilized for the study. A dose lowering technique was utilized adhering to the principles of ALARA. MIP reconstructed images were created and reviewed. COMPARISON: No relevant prior studies available. FINDINGS: Pulmonary arteries: No pulmonary embolism. Aorta: No acute findings. Normal caliber. No dissection. Lungs: Unremarkable. Pleural space: Unremarkable. Heart: Unremarkable. Thyroid: Left thyroid nodule measuring 2 cm. Bones/joints: No acute fracture. Soft tissues: Unremarkable. Lymph nodes: Unremarkable. IMPRESSION: 1. No pulmonary embolism. 2. No acute abnormality within the lungs. 3. Left thyroid nodule measuring 2 cm. Consider nonemergent outpatient thyroid ultrasound. Electronically signed by: Carlos Field MD 10/05/23 00:[address] 10/04/23 21:45 Exam(s): CT HEAD Without Contrast EXAM: CT Head Without Intravenous Contrast CLINICAL HISTORY: Reason for exam: can't walk. 2 vaccines yesterday. TECHNIQUE: Axial computed tomography images of the head/brain without intravenous contrast. CTDI is 36.9 mGy and DLP is 624.41 mGy-cm. Automated exposure control was utilized for the study. A dose lowering technique was utilized adhering to the principles of ALARA. COMPARISON: No relevant prior studies available. FINDINGS: Brain: No hemorrhage, extra-axial fluid collection, mass effect, or edema. Ventricles: Unremarkable. Bones/joints: Unremarkable. No fracture. Soft tissues: Unremarkable. Sinuses: No acute sinusitis. Mastoid air cells: Unremarkable as visualized. IMPRESSION: 1. No acute intracranial abnormality. Electronically signed by: Carlos Field MD 10/05/23 00:42 AM Medications Administered Home Medications albuterol sulfate 90 mcg/actuation aerosol inhaler 2 puff inhalation QID PRN Shortness Of Breath Or Wheezing 10/05/23 [History Confirmed 10/05/23] doxepin 100 mg capsule 100 mg PO HS 10/05/23 [History Confirmed 10/05/23] doxepin 25 mg capsule 25 mg PO DAILY 10/05/23 [History Confirmed 10/05/23] dutasteride 0.5 mg capsule (Avodart) 0.5 mg PO DAILY 10/05/23 [History Confirmed 10/05/23] montelukast 10 mg tablet 10 mg PO DAILY 10/05/23 [History Confirmed 10/05/23] oxcarbazepine 300 mg tablet (Trileptal) 300 mg PO BID 10/05/23 [History Confirmed 10/05/23] tamsulosin 0.4 mg capsule (Flomax) 0.8 mg PO HS 10/05/23 [History Confirmed 10/05/23] trazodone 50 mg tablet 50 mg PO HS 10/05/23 [History Confirmed 10/05/23] Active Medications Acetaminophen (Acetaminophen 325 Mg Tab) 650 mg PO Q4H PRN PRN Reason: Pain or Fever Stop: 11/04/23 04:06 Last Admin: 10/05/23 19:51 Dose: 650 mg Albuterol (Albuterol Hfa 8 Gm Inhaler) 2 puffs INH QID PRN PRN Reason: Shortness Of Breath Or Wheezing Stop: 11/04/23 04:06 Doxepin HCl (Doxepin Hcl 25 Mg Capsule) 25 mg PO DAILY [facility] Stop: 11/04/23 08:59 Last Admin: 10/05/23 09:16 Dose: 25 mg Doxepin HCl (Doxepin Hcl 50 Mg Capsule) 100 mg PO [facility] Stop: 11/04/23 20:59 Last Admin: 10/05/23 20:52 Dose: 100 mg Finasteride (Finasteride 5 Mg Tab) 5 mg PO DAILY [facility] Stop: 11/04/23 08:59 Last Admin: 10/05/23 09:16 Dose: 5 mg Hydromorphone HCl (Hydromorphone Inj 0.5 Mg/0.5 Ml Syr) 0.5 mg IV Q6H PRN PRN Reason: Severe Pain (Scale 7, 8, 9,10) Stop: 10/19/23 04:06 Last Admin: 10/05/23 16:12 Dose: 0.5 mg Sodium Chloride (Nss) 1,000 mls @ 100 mls/hr IV .Q10H [facility] Stop: 11/04/23 04:06 Last Infusion: 10/05/23 19:13 Dose: 0 mls/hr Immune Globulin (Octagam 10%) 200 mls @ 52.74 mls/hr IV TODAY@1930 [facility]; Protocol Stop: 10/05/23 23:18 Vancomycin HCl 2,000 mg/ (Sodium Chloride) 540 mls @ 200 mls/hr IV ONE ONE; Protocol Stop: 10/05/23 22:41 Last Admin: 10/05/23 20:43 Dose: 200 mls/hr Acyclovir Sodium 900 mg/ (Dextrose) 118 mls @ 100 mls/hr IV NOW ONE; Protocol Stop: 10/05/23 21:34 Cefepime HCl 2,000 mg/ Syringe 20 mls @ 5 mls/min IV Q8H [facility]; Protocol Stop: 10/15/23 20:44 Ketorolac Tromethamine (Ketorolac Tromethamine 15 Mg/Ml Vial) 15 mg IV Q6H PRN PRN Reason: Moderate Pain (Scale 4, 5, 6) Stop: 10/10/23 04:06 Miscellaneous Information (Vancomycin Consult Active) 1 each N/A UD PRN PRN Reason: Consult- religious educator infection dosing Stop: 11/04/23 19:40 Montelukast Sodium (Montelukast Sodium 10 Mg Tablet) 10 mg PO DAILY [facility] Stop: 11/04/23 08:59 Last Admin: 10/05/23 09:16 Dose: 10 mg Nitroglycerin (Nitroglycerin Sl 0.4 Mg/Tab Tab) 0.4 mg SL Q5M PRN PRN Reason: Chest Pain Stop: 11/04/23 04:06 Ondansetron HCl (Ondansetron Inj 2 Mg/Ml 2 Ml Vial) 4 mg IV Q6H PRN PRN Reason: Nausea Stop: 11/04/23 04:06 Oxcarbazepine (Oxcarbazepine 150 Mg Tablet) 300 mg PO BID [facility] Stop: 11/04/23 08:59 Last Admin: 10/05/23 20:52 Dose: 300 mg Tamsulosin HCl (Tamsulosin Hcl 0.4 Mg Cap) 0.8 mg PO [facility] Stop: 11/04/23 20:59 Last Admin: 10/05/23 20:51 Dose: 0.8 mg Trazodone HCl (Trazodone Hcl 50 Mg Tab) 50 mg PO [facility] Stop: 11/04/23 20:59 Last Admin: 10/05/23 20:51 Dose: 50 mg ECG Additional Comments: Sinus tachycardia Nonspecific ST abnormality Abnormal ECG No previous ECGs available Coding Level of Care Code 31644 CRITICAL CARE 1ST 30-74M Diagnoses Headache R51.9 Weakness of extremity R29.898 Bilateral leg weakness R29.898 Urinary retention R33.9
[2023-10-05] MEDS ORDERED: VANCOMYCIN CONSULT ACTIVE PRN ×2 (19:41)
[2023-10-05] MEDS: ACETAMINOPHEN 325 MG TAB PO PRN (19:51)
[2023-10-05] MEDS: Octagam 10% IVIG 10 gram bottle IV SCH (19:51)
[2023-10-05] MEDS: cefTRIAXone SODIUM 2,000 MG in DEXTROSE 5 % MINI-B 50 ML IV SCH (20:20)
[2023-10-05] MEDS: VANCOMYCIN HCL 2,000 MG in SODIUM CHLORIDE 0.9% 500 ML IV ONE (20:43)
[2023-10-05] MEDS: traZODone HCL 50 MG TAB PO SCH (20:51)
[2023-10-05] MEDS: TAMSULOSIN HCL 0.4 MG CAP PO SCH (20:51)
[2023-10-05] MEDS: DOXEPIN HCL 50 MG CAPSULE PO SCH (20:52)
[2023-10-05] MEDS: CEFEPIME 2,000 MG in SYRINGE 0 ML IV SCH (21:10)
[2023-10-05] MEDS: PHENobarbital sodium 65 MG/ML VIAL IV STA (21:23)
[2023-10-05] MEDS: Octagam 10% IVIG 20 gram bottle IV SCH (21:29)
[2023-10-05] MEDS: MEROPENEM 2,000 MG in 0.9 % SODIUM CHLORIDE 60 ML IV SCH (22:27)
[2023-10-05] MEDS: ACYCLOVIR SOD 750 MG in DEXTROSE 5% 100 ML IV ONE (23:10)
[2023-10-06] MEDS: KETOROLAC TROMETHAMINE 15 MG/ML VIAL IV PRN (05:08)
[2023-10-06 05:32] LABS: Basophils # (auto) 0.03 K/uL (0.00-0.20); Basophils % (auto) 0.5 %; Eosinophils # (auto) 0.19 K/uL (0.00-0.50); Eosinophils % (auto) 3.2 %; Hematocrit (blood only) 37.1 % (42.0-52.0); Hemoglobin 12.5 g/dl (14.0-18.0); Immature Granulocytes # (auto) 0.02 K/uL (0.01-0.20); Immature Granulocytes % (auto) 0.3 %; Lymphocytes % (auto) 25.5 %; Mean Corpuscular Hemoglobin 32.1 pg (25.0-34.0); Mean Corpuscular Hgb Conc 33.7 g/dL (32.0-36.0); Mean Corpuscular Volume 95.1 fL (80.0-100.0); Mean Platelet Volume 9.9 fL (9.4-12.4); Monocytes # (auto) 0.84 K/uL (0.11-0.59); Monocytes % (auto) 14.3 %; Neutrophils # (auto) 3.31 K/uL (1.40-6.50); Neutrophils % (auto) 56.2 %; Platelet Count 292 K/uL (130-400); RDW Coefficient of Variation 13.2 % (11.5-14.5); RDW Standard Deviation 45.7 fL (36.4-46.3); White Blood Count 5.89 K/ul (4.8-10.8)
[2023-10-06 05:39] LABS: Albumin Globulin Ratio 1.1 (0.9-2); Albumin Level 3.5 gm/dl (3.4-5.0); BUN Creatinine Ratio 11.9 (10-20); Bilirubin,Total 0.5 mg/dl (0.2-1.0); Calcium 8.2 mg/dl (8.6-10.3); Est GFR (African American) 110.3 ml/min; Est GFR (Non-African American) 95.2 ml/min; Globulin 3.2 gm/dl (2.5-4.0); Magnesium 1.9 mg/dl (1.7-2.4); Phosphorus 2.8 mg/dl (2.5-4.9); Total Protein 6.7 gm/dl (6.0-8.3)
[2023-10-06] MEDS: VANCOMYCIN HCL 1,500 MG in SODIUM CHLORIDE 0.9% 500 ML IV SCH (06:10)
--- NOTE | 2023-10-06 10:54 | Pharmacy Report ---
Pharmacy PK ABX Note - Date of Service October 06, 2023 - Assessment and Plan Assessment 58 year old M receiving vancomycin/meropenem for treatment of possible meningitis/encephalitis. LP to be performed. Pertinent microbiologic data includes: Blood cultures negative at 24 hours. Leukocytosis has resolved. On IVIG for possible GBS. Initial dosing more aggressive for indication to ensure therapeutic levels, will get early level. Plan Vancomycin * Loading dose: 2000 mg IV x 1 * Maintenance dose:1500 mg IV every 12 hours * Trough ordered for 10/07 with AM labs Pharmacy will continue to follow and will adjust dose/frequency as necessary. Thank you. Pharmacy has transitioned to AUC monitoring for vancomycin. AUC/JIMMY is the preferred PK/PD target and is associated with decreased risk of nephrotoxicity compared to traditional trough targets.
--- NOTE | 2023-10-06 11:56 | Communication Note ---
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 He is undergoing IVIG and antimicrobial treatment as possible NCS infection remains within the differential. He is pending lumbar puncture for CSF analysis. Recommend MRI brain and spine be obtained with and without contrast. Recommend continue to monitor NIF and VC. Continue to monitor vital signs closely for dysautonomia. Continue to monitor/control pain. Continue to monitor neurological assessments and obtain stat CT brain without contrast for any acute neurological decline. Will benefit from aggressive rehab/therapy services. VTE prophylaxis
--- NOTE | 2023-10-06 13:59 | Hospitalist Progress Note ---
Date of Service October 06, 2023 Assessment & Plan (1) Bilateral leg weakness: Plan: 58-year-old male with past medical history significant for BPH, depression comes because of body aches, fever, weakness in lower extremity after he got pneumococcal and shingles shots a day prior to presentation. Patient complained of headache, chest pain, abdominal pain, pain in the legs. Reported progressive progression of weakness in a cephalocaudal direction History of smoking 0.5ppd x 40 years, quit 1 yr ago since being in halfway. Quit alcohol 1 yr ago Used to do IV drugs 30years ago Per Admitting Provider, ER tried to do LP but patient refused. 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 Neurologist recommendations appreciated. MRI brain, cervical spine, thoracic spine, lumbar spine still pending. 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 Will follow-up CSF studies. 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 Chest pain EKG reviewed Initial troponin negative CTA chest negative TTE :Mild concentric LVH, EF of 65 to 70%, grade 1 diastolic dysfunction, trace aortic regurgitation, mild aortic root dilatation of 4.2 cm History of hepatitis Will follow hepatitis panel BPH Continue home medications Depression Continue home medications DVT prophylaxis Pharm agent held for planned LP Resume later Full code I spent a total of 50 minutes coordinating, documenting and providing care for this patient excluding time spent in performance of separately billed services Admission and Anticipated Discharge Date Admission Date: October 05, 2023 Subjective Patient seen and examined. Reports he is able to move his legs a bit today unlike yesterday. Reports headache. Denies fever or chills. Currently on room air. Denies any cough, chest pain, shortness of breath Physical Exam Constitutional: + well hydrated; no acute distress Eyes: PERRL, conjunctivae normal, anicteric sclerae ENMT: external ear and nose normal, oropharynx normal Respiratory: normal respiratory effort, lungs clear to auscultation Cardiovascular: RRR, no murmur, no edema Gastrointestinal (Abdomen): normal bowel sounds, soft, nontender, no hepatosplenomegaly Musculoskeletal: No pedal edema Neurologic: PERRL, EOMI, accommodation nl, no face palsy, no dysarthria Power is 4/5 in upper extremities and 2/5 in lower extremities. Psychiatric: A+Ox3, euthymic affect Genitourinary: Larson in situ Results & Data Results & Data Vital Signs (Past 12 Hours) Vital Signs Temp Pulse Resp BP Pulse Ox O2 Del Method O2 Flow Rate 10/06/23 10:25 67 10/06/23 09:00 36.8 C 81 21 138/83 93 10/06/23 08:31 36.7 C 88 25 H 153/96 H 91 10/06/23 08:01 36.7 C 112 H 25 H 152/98 H 92 10/06/23 07:30 36.7 C 79 21 96/82 L 95 10/06/23 07:00 36.8 C 68 18 124/73 94 10/06/23 05:30 37.1 C 59 L 12 97 10/06/23 05:30 121/70 10/06/23 05:00 129/76 10/06/23 05:00 37.1 C 70 20 97 10/06/23 04:56 37.1 C 72 16 98 10/06/23 04:56 124/68 10/06/23 04:30 117/65 10/06/23 04:30 37.0 C 63 11 L 96 10/06/23 04:00 37.0 C 67 15 97 10/06/23 03:30 36.9 C 59 L 12 10/06/23 03:30 109/69 10/06/23 03:14 81 L Room Air 0 10/06/23 03:00 115/62 10/06/23 03:00 36.9 C 65 12 Nasal Cannula 3 10/06/23 02:30 120/68 10/06/23 02:30 36.8 C 62 12 10/06/23 02:00 36.8 C 62 12 93 10/06/23 02:00 117/67 Laboratory Results Abnormal lab results 10/06/23 10/06/23 Range/Units 05:00 15:00 RBC 3.90 L (4.70-6.10) M/uL Hgb 12.5 L (14.0-18.0) g/dl Hct 37.1 L (42.0-52.0) % [place] # (Auto) 0.84 H (0.11-0.59) K/uL Sodium 133 L (136-145) mmol/L Calcium 8.2 L (8.6-10.3) mg/dl AST 12 L (13-39) U/L CSF Glucose 73 H (40-70) mg/dl
--- NOTE | 2023-10-06 14:19 | Critical Care Progress Note ---
Date of Service October 06, 2023 Assessment & Plan (1) Headache: (2) Weakness of extremity: (3) Bilateral leg weakness: (4) Urinary retention: Plan Reason Critically Ill: 58 YOM admitted for muscle weakness that progressed 2 hours post shingles and Pneumovax vaccines, associated with headaches, neck pain and febrile. LP is pending, MRI pending. Admitted to ICU for NIF monitoring and following for any dysautonomia. Neuro - Progressive muscle weakness of extremities, concern for encephalitis vs. rig builder helper infection vs. guillan barre or combination of the above CAM ICU: NEGATIVE Continue with neurochecks NIF goal > -20 every 4 hours x 24 hours and then decrease the intensity if it is persistently high - Nuero exam currently improving with better movement in arms and hands, and flexion of quads/hips - Continue IVIG daily - NIF q4 hours goal > -20 - Empiric abx therapy for encephalitis/meningitis as is in residential - severe allergy to PCN- Meropenem, Acyclovir, Vancomycin- will currently hold on Amp Cardiac - NO acute needs - Follow HR and hemodynamics Respiratory - - As above - follow for progession of symptoms to involve diaphragm - intubation if needed GI - As above - NPO RENAL/LYTES - No acute needs - Urinary retention, BPH - Patient with history of urinary retention with BPH- however with ongoing concerns for GB and dysautonomia, Larson catheter placed ENDO - No acute needs HEME - No acute needs- see ID below ID - Headache associated with neck pain, neurological weakness, fever and leukocytosis -On empiric PAYROLL LEAD dosing for meningitis/encephalitis- patient has throat closing with PCN- will adjust based on severe allergy - Meropenem 2GM IV q8 - Vancomycin- load pharmacy to dose - Acylovir 10mg/kg daily - De-escelate as apporpriate and following LP --Prophylaxis VTE: IPC GI: None Lines: Peripheral Diet: Cardiac Plan: In/out: +971. Urine output 1725 Patient's NIF have been > -40 persistently. Will decrease the frequency to twice daily and as needed with worsening shortness of breath. Getting IVIG with a total of 5 days to be given. Continue with neurochecks. If there is any worsening in patient's respiratory status. Intubation will be thought of and possible transfer for plasmapheresis. Magnesium being replaced Consent for lumbar puncture obtained from the patient. I have personally spent 35 minutes of critical care time in the direct management of this patient. This is a life/limb threatening event. This includes time spent evaluating patient, direct bedside care, chart review, placing orders, interpretation of diagnostic studies, discussion with consultants, patient, and family members, as well as other required patient management activities. This time is exclusive of all separately billable procedures, and teaching time and separate from and in addition to any other critical care service time. Thank you for allowing us to participate in the care of this patient. Please refer to my attending physician's documentation for any further recommendations. Admission and Anticipated Discharge Date Admission Date: October 05, 2023 Subjective Patient seen and examined at bedside. No acute distress, no adverse events overnight. Denies any headache, no nausea vomiting No difficulty swallowing Bilateral upper extremities able to move actively, able to move it a bit of lower extremities bilaterally. No shortness of breath, no chest pain Review of Systems 2 Review of Systems: All systems reviewed & are unremarkable except as noted in Subjective Physical Exam 2 Physical Exam: Constitutional: No acute distress HEENT: EOMI, PERRLA Respiratory system: Good air entry bilaterally, no wheeze, no rhonchi, mild crackles bilateral lower lobes CVS: S1-S2 positive, no murmurs or gallops Abdomen: Soft, nontender, nondistended, positive bowel sounds x4 Extremities: +2 pulses bilaterally radialis/ dorsalis pedis, no cyanosis, no edema Neuro: Awake alert oriented x3, cranial nerves II to XII grossly intact, strength 2 out of 5 bilateral lower extremity, 4/5 bilateral upper extremity Psych: Normal mood and affect G/U: Positive Larson Results & Data Results & Data Vital Signs (Past 12 Hours) Vital Signs Temp Pulse Resp BP Pulse Ox O2 Del Method O2 Flow Rate 10/06/23 10:25 67 10/06/23 09:00 36.8 C 81 21 138/83 93 10/06/23 08:31 36.7 C 88 25 H 153/96 H 91 10/06/23 08:01 36.7 C 112 H 25 H 152/98 H 92 10/06/23 07:30 36.7 C 79 21 96/82 L 95 10/06/23 07:00 36.8 C 68 18 124/73 94 10/06/23 05:30 37.1 C 59 L 12 97 10/06/23 05:30 121/70 10/06/23 05:00 129/76 10/06/23 05:00 37.1 C 70 20 97 10/06/23 04:56 37.1 C 72 16 98 10/06/23 04:56 124/68 10/06/23 04:30 117/65 10/06/23 04:30 37.0 C 63 11 L 96 10/06/23 04:00 37.0 C 67 15 97 10/06/23 03:30 36.9 C 59 L 12 10/06/23 03:30 109/69 10/06/23 03:14 81 L Room Air 0 10/06/23 03:00 115/62 10/06/23 03:00 36.9 C 65 12 Nasal Cannula 3 10/06/23 02:30 120/68 10/06/23 02:30 36.8 C 62 12 Laboratory Results 10/06/23 05:00 10/06/23 05:00 Coding Level of Care Code 86595 CRITICAL CARE 1ST 30-74M Diagnoses Headache R51.9 Weakness of extremity R29.898 Bilateral leg weakness R29.898 Urinary retention R33.9
[2023-10-06] MEDS: MoRPHine SULFATE 2 MG/ML CARP IV PRN (15:00)
--- NOTE | 2023-10-06 15:08 | Procedure Note ---
Procedure Note Date of Service October 06, 2023 Note INDICATION: GBS PERFORMING PHYSICIAN: Violet Cordoba MD CONSENT: Consent was obtained from patient prior to the procedure. Indications, risks, and benefits were explained at length. PROCEDURE SUMMARY: A time-out was performed. My hands were washed immediately prior to the procedure. Aseptic precautions were taken including mask with protective eyewear, sterile gown and sterile gloves throughout the procedure. The patient was placed in the sitting position with help from the nursing staff. The area was cleansed and draped in usual sterile fashion using betadine scrub. Anesthesia was achieved with 1% lidocaine. A 20-gauge 3.5-inch spinal needle was placed in the T4 lumbar interspace. On the first attempt, clear cerebral spinal fluid was obtained. CSF was collected into 4 tubes. These were sent for the usual tests. A sterile band-aid was placed over the puncture site. The patient had no immediate complications and tolerated the procedure well. Complication: None Estimated blood loss: None Coding CPT Codes Lumbar Puncture - Lumbar Puncture, Diagnostic: 65714 Lumbar Puncture, Diagnostic ([id number]) [facility] [place] Procedure Codes (Charges) Lumbar Puncture Lumbar Puncture, Diagnostic: 49670 Lumbar Puncture, Diagnostic
[2023-10-06 15:45] LABS: Total Protein CSF 33.3 mg/dl (15-45)
[2023-10-06 15:47] LABS: Appearance CSF Clear; CSF Count Tube # 3; CSF Xanthrochromic No xanthochromia; Color CSF Colorless; Red Blood Cell CSF Manual 0 (0-); White Blood Cell CSF Manual 0 (0-5)
[2023-10-06 16:53] LABS: Cryptococcus neoformans/ga PCR Not Detected (NotDetected); Cytomegalovirus PCR Not Detected (NotDetected); Enterovirus PCR Not Detected (NotDetected); Escherichia coli K1 PCR Not Detected (NotDetected); Haemophilius influenzae PCR Not Detected (NotDetected); Herpes Simplex Virus 1 PCR Not Detected (NotDetected); Herpes Simplex Virus 2 PCR Not Detected (NotDetected); Human Herpes Virus 6 PCR Not Detected (NotDetected); Human Parechovirus PCR Not Detected (NotDetected); Listeria monocytogenes PCR Not Detected (NotDetected); Neisseria meningitidis PCR Not Detected (NotDetected); Streptococcus agalactiae PCR Not Detected (NotDetected); Streptococcus pneumoniae PCR Not Detected (NotDetected); Varicella Zoster Virus PCR Not Detected (NotDetected)
[2023-10-06] MEDS ORDERED: Octagam 10% IVIG 5 gram bottle IV SCH (17:30)
[2023-10-06] MEDS: Octagam 10% IVIG 20 gram bottle IV SCH (17:53)
[2023-10-06] MEDS ORDERED: Octagam 10% IVIG 10 gram bottle IV SCH (18:30)
[2023-10-06] MEDS ORDERED: Octagam 10% IVIG 20 gram bottle IV SCH (19:30)
[2023-10-06] MEDS: [UNRECOGNIZED DRUG - OTHER] IV SCH (19:37)
--- NOTE | 2023-10-07 08:00 | Critical Care Progress Note ---
Date of Service October 07, 2023 Assessment & Plan (1) Headache: (2) Weakness of extremity: (3) Bilateral leg weakness: (4) Urinary retention: Plan Reason Critically Ill: 58 YOM admitted for muscle weakness that progressed 2 hours post shingles and Pneumovax vaccines, associated with headaches, neck pain and febrile. LP is pending, MRI pending. Admitted to ICU for NIF monitoring and following for any dysautonomia. Neuro - Progressive muscle weakness of extremities, concern for encephalitis vs. clinical trials assistant infection vs. guillan barre or combination of the above CAM ICU: NEGATIVE Continue with neurochecks NIF goal > -20 every 4 hours x 24 hours and then decrease the intensity if it is persistently high - Nuero exam currently improving with better movement in arms and hands, and flexion of quads/hips - Continue IVIG daily - NIF as needed going forward -LP 10/06/2023 showed normal protein with mildly elevated glucose. BioFire from the CSF was negative for everything. Empiric antibiotics were discontinued Cardiac - NO acute needs - Follow HR and hemodynamics Respiratory - - As above - follow for progression of symptoms to involve diaphragm GI - As above - NPO RENAL/LYTES - No acute needs - Urinary retention, BPH - Patient with history of urinary retention with BPH- however with ongoing concerns for GB and dysautonomia, Larson catheter placed --Voiding trial today ENDO - No acute needs HEME - No acute needs- see ID below ID - Headache associated with neck pain, neurological weakness, fever and leukocytosis -On empiric SPECIALTY COOK dosing for meningitis/encephalitis- patient has throat closing with PCN- will adjust based on severe allergy -- S/p lumbar puncture 10/06/2023, BioFire from the CSF was negative for everything. Empiric antibiotics were discontinued --Prophylaxis VTE: Lovenox GI: None Lines: Peripheral Diet: Cardiac Plan: In/out: In/out: -1.9 L, urine output 4950 Lumbar puncture was negative for all all bio fire. Empiric antibiotic for meningitis has been discontinued. MRI of the brain and the spine is still pending based on finding if his penile implant is MRI compatible. Decrease the frequency of NIF to twice daily and as needed difficulty breathing DC Larson and give a voiding trial Resume Lovenox Patient hemodynamically stable to be downgrade to medical floor Case was discussed with primary team Please note the above document was generated using voice recognition software. It may contain grammatical, syntax or spelling errors.Any formal questions or concerns about the content, text or information contained within the body of this dictation should be directly addressed to the provider for clarification. Admission and Anticipated Discharge Date Admission Date: October 05, 2023 Subjective Patient seen and examined at bedside. No acute distress, notable symptoms overnight. He said he is feeling better compared to yesterday. Tolerating diet. No difficulty swallowing, no shortness of breath. Is NIF have been > -40 for more than 48 hours. No nausea vomiting No abdominal pain Review of Systems 2 Review of Systems: All systems reviewed & are unremarkable except as noted in Subjective Physical Exam 2 Physical Exam: Constitutional: No acute distress HEENT: EOMI, PERRLA Respiratory system: Good air entry bilaterally, no wheeze, no rhonchi, mild crackles bilateral lower lobes CVS: S1-S2 positive, no murmurs or gallops Abdomen: Soft, nontender, nondistended, positive bowel sounds x4, obese Extremities: +2 pulses bilaterally radialis/ dorsalis pedis, no cyanosis, no edema Neuro: Awake alert oriented x3, cranial nerves II to XII grossly intact, strength 3 out of 5 bilateral lower extremity, 4/5 bilateral upper extremity Psych: Normal mood and affect G/U: Positive Larson Skin: no rashes, warm and dry Lymphatic: no cervical or axillary lymphadenopathy Results & Data Results & Data Vital Signs (Past 12 Hours) Vital Signs Temp Pulse Resp BP Pulse Ox 10/07/23 07:30 36.6 C 71 15 122/80 93 10/07/23 07:00 36.7 C 56 L 14 113/68 97 10/07/23 05:30 134/85 10/07/23 05:30 36.9 C 57 L 14 96 10/07/23 05:00 36.9 C 60 16 96 10/07/23 05:00 127/78 10/07/23 04:30 37.0 C 60 14 96 10/07/23 04:30 121/74 10/07/23 04:00 131/82 10/07/23 04:00 37.0 C 75 17 96 10/07/23 03:30 149/72 H 10/07/23 03:30 37.2 C 60 15 97 10/07/23 03:00 37.5 C 63 15 96 10/07/23 03:00 115/58 L 10/07/23 02:30 131/78 10/07/23 02:30 37.5 C 65 18 99 10/07/23 02:00 37.5 C 64 13 94 10/07/23 02:00 111/74 10/07/23 01:45 64 10/07/23 01:30 37.5 C 64 13 94 10/07/23 01:30 129/70 10/07/23 01:15 37.6 C H 68 17 94 10/07/23 01:00 37.6 C H 69 16 92 10/07/23 01:00 136/64 10/07/23 00:45 37.6 C H 60 13 94 10/07/23 00:30 37.7 C H 60 13 94 10/07/23 00:30 121/73 10/07/23 00:15 37.7 C H 60 14 96 10/07/23 00:00 37.6 C H 62 13 94 10/07/23 00:00 129/69 10/06/23 23:45 37.6 C H 61 14 91 10/06/23 23:30 37.6 C H 62 15 95 10/06/23 23:30 132/84 10/06/23 23:15 37.7 C H 66 16 93 10/06/23 23:00 37.7 C H 66 15 94 10/06/23 23:00 138/71 10/06/23 22:45 37.6 C H 63 18 94 10/06/23 22:30 37.6 C H 63 18 96 10/06/23 22:30 139/76 10/06/23 22:15 37.6 C H 63 19 95 10/06/23 22:00 142/77 H 10/06/23 22:00 37.6 C H 69 17 95 10/06/23 21:45 37.5 C 66 18 95 10/06/23 21:30 37.5 C 66 15 95 10/06/23 21:30 138/78 10/06/23 21:15 37.4 C 60 17 96 10/06/23 21:00 161/87 H 10/06/23 21:00 37.4 C 62 19 96 10/06/23 20:45 37.3 C 70 25 H 94 0217/24 20:30 133/74 10/06/23 20:30 37.3 C 69 20 96 10/06/23 20:15 37.3 C 57 L 15 96 Laboratory Results 10/07/23 12:14 10/07/23 07:40 Coding Level of Care Code 10580 SUB INP/OBS CARE 3/50MIN Diagnoses Headache R51.9 Weakness of extremity R29.898 Bilateral leg weakness R29.898 Urinary retention R33.9
[2023-10-07] MEDS: ENOXAPARIN INJ 40 MG/0.4 ML SYR SQ SCH (08:27)
[2023-10-07 08:36] LABS: Hematocrit (blood only) 41.5 % (42.0-52.0); Hemoglobin 14.2 g/dl (14.0-18.0); Mean Corpuscular Hemoglobin 31.8 pg (25.0-34.0); Mean Corpuscular Hgb Conc 34.2 g/dL (32.0-36.0); Mean Corpuscular Volume 92.8 fL (80.0-100.0); Mean Platelet Volume 10.7 fL (9.4-12.4); Platelet Count 211 K/uL (130-400); Platelet Estimate Normal (Normal); RDW Coefficient of Variation 12.9 % (11.5-14.5); RDW Standard Deviation 43.6 fL (36.4-46.3); Red Blood Count 4.47 M/uL (4.70-6.10); White Blood Count 5.36 K/ul (4.8-10.8)
[2023-10-07 08:49] LABS: Albumin Level 3.9 gm/dl (3.4-5.0); BUN Creatinine Ratio 11.9 (10-20); Bilirubin,Total 0.4 mg/dl (0.2-1.0); Calcium 9.2 mg/dl (8.6-10.3); Creatinine Clr Calc Pharmacy 99.6 ml/min; Est GFR (African American) 110.3 ml/min; Est GFR (Non-African American) 95.2 ml/min; Globulin 3.8 gm/dl (2.5-4.0); Magnesium 2.1 mg/dl (1.7-2.4); Phosphorus 2.9 mg/dl (2.5-4.9); Potassium 4.8 mmol/L (3.5-5.1); Total Protein 7.7 gm/dl (6.0-8.3)
[2023-10-07] MEDS: POLYETHYLENE (MIRALAX) 17 GM PACK PO SCH (10:03)
--- NOTE | 2023-10-07 11:08 | Communication Note ---
Date of Service: October 07, 2023 EMR reviewed 58yo male presented with weakness in extremities and areflexia- reportedly following vaccination LP performed, initial CSF results do not indicate acute CSF infection Further CSF studies remain pending, Serum GBS antibodies pending MRI brain and spinal cord pending Continue IVIG Continue to monitor for s/s of infection Monitor/control pain Continue to monitor neurological assessments Obtain stat CT brain for any acute neurological decline Continue to monitor diaphragmatic respiratory function NIF/VC Continue to monitor renal and hepatic function VTE prophylaxis
[2023-10-07 12:39] LABS: Basophils # (auto) 0.03 K/uL (0.00-0.20); Basophils % (auto) 0.7 %; Eosinophils # (auto) 0.34 K/uL (0.00-0.50); Eosinophils % (auto) 7.4 %; Hematocrit (blood only) 39.1 % (42.0-52.0); Hemoglobin 13.2 g/dl (14.0-18.0); Immature Granulocytes # (auto) 0.01 K/uL (0.01-0.20); Immature Granulocytes % (auto) 0.2 %; Lymphocytes # (auto) 1.39 K/uL (1.20-3.40); Lymphocytes % (auto) 30.4 %; Mean Corpuscular Hemoglobin 31.6 pg (25.0-34.0); Mean Corpuscular Hgb Conc 33.8 g/dL (32.0-36.0); Mean Corpuscular Volume 93.5 fL (80.0-100.0); Mean Platelet Volume 10.2 fL (9.4-12.4); Monocytes % (auto) 10.9 %; Neutrophils % (auto) 50.4 %; Platelet Count 314 K/uL (130-400); RDW Coefficient of Variation 12.9 % (11.5-14.5); RDW Standard Deviation 44.4 fL (36.4-46.3); Red Blood Count 4.18 M/uL (4.70-6.10); White Blood Count 4.57 K/ul (4.8-10.8)
--- NOTE | 2023-10-07 13:56 | Hospitalist Progress Note ---
Date of Service October 07, 2023 Assessment & Plan (1) Bilateral leg weakness: Plan: 58-year-old male with past medical history significant for BPH, depression comes because of body aches, fever, weakness in lower extremity after he got pneumococcal and shingles shots a day prior to presentation. Patient complained of headache, chest pain, abdominal pain, pain in the legs. Reported progressive progression of weakness in a cephalocaudal direction History of smoking 0.5ppd x 40 years, quit 1 yr ago since being in assisted. Quit alcohol 1 yr ago Used to do IV drugs 30years ago Per Admitting Provider, ER tried to do LP but patient refused. 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 Neurologist recommendations appreciated. MRI brain, cervical spine, thoracic spine, lumbar spine still pending. 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 S/P LP on 10/06/23 CSF analysis ruled out HOT BILLET SHEAR OPERATOR infection Empirical antibiotic and antifungal discontinued Discussed with Neuro and ICU Continue IVIG Will follow up MRI once able to obtain NIF BID/PRN Weakness improving F/u send out labs including serum GB antibodies Downgrade from ICU to PCU Monitor PT/OT Regular turns Chest pain, resolved EKG reviewed Initial troponin negative CTA chest negative TTE :Mild concentric LVH, EF of 65 to 70%, grade 1 diastolic dysfunction, trace aortic regurgitation, mild aortic root dilatation of 4.2 cm History of hepatitis Will follow hepatitis panel BPH Continue home medications Larson removed earlier Monitor urine output as patient has h/o intermittent straight cath at assisted per RN Depression Continue home medications DVT prophylaxis Lovenox Full code I spent a total of 50 minutes coordinating, documenting and providing care for this patient excluding time spent in performance of separately billed services Admission and Anticipated Discharge Date Admission Date: October 05, 2023 Subjective Patient seen and examined. Reports increased strength in limbs today Still reports headache. No fever or chills Denies any cough, chest pain, shortness of breath Denied any nausea, vomiting, abd pain Passing flatus but no BM. Physical Exam Constitutional: + well hydrated; no acute distress Eyes: PERRL, conjunctivae normal, anicteric sclerae ENMT: external ear and nose normal, oropharynx normal Respiratory: normal respiratory effort, lungs clear to auscultation Cardiovascular: RRR, no murmur, no edema Gastrointestinal (Abdomen): normal bowel sounds, soft, nontender, no hepatosplenomegaly Musculoskeletal: No pedal edema Neurologic: PERRL, EOMI, accommodation nl, no face palsy, no dysarthria Power is 4/5 in upper extremities and 3/5 in lower extremities Psychiatric: A+Ox3, euthymic affect Results & Data Results & Data Vital Signs (Past 12 Hours) Vital Signs Temp Pulse Resp BP Pulse Ox 10/07/23 12:00 63 13 129/81 95 10/07/23 11:00 56 L 15 115/65 94 10/07/23 10:00 36.9 C 69 16 141/85 H 94 10/07/23 09:00 36.8 C 63 16 126/77 93 10/07/23 08:00 36.7 C 81 19 146/83 H 90 10/07/23 07:30 36.6 C 71 15 122/80 93 10/07/23 07:00 36.7 C 56 L 14 113/68 97 10/07/23 05:30 134/85 10/07/23 05:30 36.9 C 57 L 14 96 10/07/23 05:00 36.9 C 60 16 96 10/07/23 05:00 127/78 10/07/23 04:30 37.0 C 60 14 96 10/07/23 04:30 121/74 10/07/23 04:00 131/82 10/07/23 04:00 37.0 C 75 17 96 10/07/23 03:30 149/72 H 10/07/23 03:30 37.2 C 60 15 97 10/07/23 03:00 37.5 C 63 15 96 10/07/23 03:00 115/58 L 10/07/23 02:30 131/78 10/07/23 02:30 37.5 C 65 18 99 10/07/23 02:00 37.5 C 64 13 94 10/07/23 02:00 111/74 Laboratory Results Abnormal lab results 10/06/23 10/06/23 10/07/23 Range/Units 15:00 17:39 07:40 WBC (4.8-10.8) K/ul RBC 4.47 L (4.70-6.10) M/uL Hgb (14.0-18.0) g/dl Hct 41.5 L (42.0-52.0) % Sodium 133 L (136-145) mmol/L Glucose 138 H (70-99(Fasting)) mg/dl CSF Glucose 73 H (40-70) mg/dl 10/07/23 Range/Units 12:14 WBC 4.57 L (4.8-10.8) K/ul RBC 4.18 L (4.70-6.10) M/uL Hgb 13.2 L (14.0-18.0) g/dl Hct 39.1 L (42.0-52.0) % Sodium (136-145) mmol/L Glucose (70-99(Fasting)) mg/dl CSF Glucose (40-70) mg/dl
[2023-10-08 06:56] LABS: Hematocrit (blood only) 36.9 % (42.0-52.0); Hemoglobin 12.9 g/dl (14.0-18.0); Mean Corpuscular Hemoglobin 32.3 pg (25.0-34.0); Mean Corpuscular Volume 92.3 fL (80.0-100.0); Mean Platelet Volume 10.2 fL (9.4-12.4); Platelet Count 328 K/uL (130-400); RDW Coefficient of Variation 12.4 % (11.5-14.5); RDW Standard Deviation 42.3 fL (36.4-46.3); White Blood Count 4.14 K/ul (4.8-10.8)
[2023-10-08 08:33] LABS: Albumin Level 3.5 gm/dl (3.4-5.0); Bilirubin,Total 0.3 mg/dl (0.2-1.0); Calcium 9.1 mg/dl (8.6-10.3); Potassium 4.3 mmol/L (3.5-5.1)
[2023-10-08 08:39] LABS: Albumin Globulin Ratio 0.8 (0.9-2); BUN Creatinine Ratio 12.2 (10-20); Est GFR (African American) 107.2 ml/min; Est GFR (Non-African American) 92.5 ml/min; Globulin 4.3 gm/dl (2.5-4.0); Total Protein 7.8 gm/dl (6.0-8.3)
--- NOTE | 2023-10-08 09:25 | Communication Note ---
Date of Service: October 08, 2023 EMR reviewed LP/CSF without overt evidence of CUSTODIAL SERVICES MANAGER infection Weakness reportedly improving Continue daily IVIG Continue to monitor VS for dysautonomia, monitor NIF/VC Continue to monitor renal and hepatic function VTE prophylaxis
--- NOTE | 2023-10-08 13:54 | Hospitalist Progress Note ---
Date of Service October 08, 2023 Assessment & Plan (1) Bilateral leg weakness: Plan: 58-year-old male with past medical history significant for BPH, depression comes because of body aches, fever, weakness in lower extremity after he got pneumococcal and shingles shots a day prior to presentation. Patient complained of headache, chest pain, abdominal pain, pain in the legs. Reported progressive progression of weakness in a cephalocaudal direction History of smoking 0.5ppd x 40 years, quit 1 yr ago since being in [facility]. Quit alcohol 1 yr ago Used to do IV drugs 30years ago Per Admitting Provider, ER tried to do LP but patient refused. 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 Neurologist recommendations appreciated. MRI brain, cervical spine, thoracic spine, lumbar spine not able to be obtained. 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 S/P LP on 10/06/23 CSF analysis ruled out HOTEL OR MOTEL ROOM SERVICE SUPERVISOR infection Empirical antibiotic and antifungal discontinued Neuro recs noted Continue IVIG NIF PRN Weakness improving Will follow up MRI brain, cervical, thoracic and lumbar F/u send out labs including serum GB antibodies Continue PT/OT Chest pain, resolved EKG reviewed Initial troponin negative CTA chest negative TTE :Mild concentric LVH, EF of 65 to 70%, grade 1 diastolic dysfunction, trace aortic regurgitation, mild aortic root dilatation of 4.2 cm History of hepatitis Will follow hepatitis panel BPH Continue home medications Larson removed earlier Monitor urine output as patient has h/o intermittent straight cath at [facility] per RN Depression Continue home medications DVT prophylaxis Lovenox Full code I spent a total of 40 minutes coordinating, documenting and providing care for this patient excluding time spent in performance of separately billed services Admission and Anticipated Discharge Date Admission Date: October 05, 2023 Subjective Patient seen and examined Weakness is improving Participated in therapy with PT today with walker Reports headache and muscle aches Has h/o intermittent urinary retention and has had intermittent straight cath occasionally at the [facility]ention Larson is back in Denied any other complaints Physical Exam Constitutional: + well hydrated; no acute distress Eyes: PERRL, conjunctivae normal, anicteric sclerae ENMT: external ear and nose normal, oropharynx normal Respiratory: normal respiratory effort, lungs clear to auscultation Cardiovascular: RRR, no murmur, no edema Gastrointestinal (Abdomen): normal bowel sounds, soft, nontender, no hepatosplenomegaly Musculoskeletal: No pedal edema Neurologic: PERRL, EOMI, accommodation nl, no face palsy, no dysarthria Power is improved. Now up to 11/22 in Psychiatric: A+Ox3, euthymic affect Results & Data Results & Data Vital Signs (Past 12 Hours) Vital Signs Temp Pulse Resp BP Pulse Ox Pulse Ox O2 Del Method 10/08/23 12:00 126/74 10/08/23 12:00 57 L 17 91 10/08/23 11:01 95 10/08/23 10:23 72 29 H 95 10/08/23 10:23 148/82 H 10/08/23 10:17 102 H 34 H 10/08/23 10:17 142/96 H 10/08/23 10:17 142/96 H 10/08/23 10:00 125/70 10/08/23 10:00 60 12 91 10/08/23 09:00 59 L 14 95 10/08/23 09:00 93 Room Air 10/08/23 08:01 65 18 95 10/08/23 08:01 153/76 H 10/08/23 08:01 153/76 H 10/08/23 08:00 68 24 95 10/08/23 07:24 121/71 10/08/23 07:24 60 21 95 10/08/23 07:00 70 21 96 10/08/23 07:00 36.9 C 10/08/23 06:00 54 L 14 93 10/08/23 06:00 118/77 10/08/23 05:00 55 L 12 92 10/08/23 04:00 55 L 12 93 10/08/23 04:00 113/73 10/08/23 03:46 36.4 C L 10/08/23 03:00 55 L 13 91 10/08/23 02:00 123/80 10/08/23 02:00 66 15 89 L
[2023-10-08] MEDS: ACETAMINOPHEN 325 MG TAB PO SCH (14:35)
[2023-10-08] MEDS ORDERED: LORazepam 0.5 MG TAB PO PRN (20:35)
[2023-10-08] MEDS: LORazepam 0.5 MG in SYRINGE 0.25 ML IV ONE (22:38)
[2023-10-09 06:58] LABS: Hematocrit (blood only) 36.2 % (42.0-52.0); Hemoglobin 12.8 g/dl (14.0-18.0); Mean Corpuscular Hemoglobin 32.2 pg (25.0-34.0); Mean Corpuscular Hgb Conc 35.4 g/dL (32.0-36.0); Mean Platelet Volume 10.5 fL (9.4-12.4); Platelet Count 359 K/uL (130-400); RDW Standard Deviation 39.8 fL (36.4-46.3); Red Blood Count 3.98 M/uL (4.70-6.10); White Blood Count 3.71 K/ul (4.8-10.8)
[2023-10-09 07:15] LABS: Albumin Globulin Ratio 0.7 (0.9-2); Albumin Level 3.5 gm/dl (3.4-5.0); BUN Creatinine Ratio 14.1 (10-20); Bilirubin,Total 0.3 mg/dl (0.2-1.0); Creatinine Clr Calc Pharmacy 88.5 ml/min; Est GFR (African American) 104.4 ml/min; Est GFR (Non-African American) 90.1 ml/min; Globulin 4.8 gm/dl (2.5-4.0); Potassium 4.5 mmol/L (3.5-5.1); Total Protein 8.3 gm/dl (6.0-8.3)
[2023-10-09] MEDS ORDERED: LORazepam 0.5 MG in SYRINGE 0.25 ML IV PRN (08:25)
--- NOTE | 2023-10-09 09:14 | Communication Note ---
Date of Service: October 09, 2023 EMR reviewed Continue daily IVIG for total of 5days Continue to monitor renal and hepatic function Continue to monitor vitals for dysautonomia Continue to monitor NIF/VC Weakness is reportedly improving Will benefit from continued aggressive therapy and rehabilitative services VTE prophylaxis
[2023-10-09 12:22] LABS: HBSAG NON-REACTIVE (NON-REACTIVE); Hepatitis A Antibody IgM NON-REACTIVE (NON-REACTIVE); Hepatitis B Core Antibody IgM NON-REACTIVE (NON-REACTIVE)
--- NOTE | 2023-10-09 12:29 | Hospitalist Progress Note ---
Date of Service October 09, 2023 Assessment & Plan (1) Bilateral leg weakness: Plan: 58-year-old male with past medical history significant for BPH, depression comes because of body aches, fever, weakness in lower extremity after he got pneumococcal and shingles shots a day prior to presentation. Patient complained of headache, chest pain, abdominal pain, pain in the legs. Reported progressive progression of weakness in a cephalocaudal direction History of smoking 0.5ppd x 40 years, quit 1 yr ago since being in care home. Quit alcohol 1 yr ago Used to do IV drugs 30years ago Bilateral leg weakness Fever Illness after shingles and pneumococcal vaccine one day prior CT head, CTA chest, CT abdomen pelvis with IV contrast unremarkable UA is unremarkable Procalcitonin negative Blood cultures negative so far Resp PCR negative Concern for possible Acute demyelinating probably radiculopathy/GBS Neurologist recommendations appreciated. 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 S/P LP on 10/06/23 CSF analysis ruled out WICK TENDER infection Empirical antibiotic and antifungal discontinued Neuro recs noted Continue IVIG NIF PRN Weakness improving Discussed with patient about need for MRI He stated he will think about it and decide later Ativan prn with MRI ordered for claustrophobia F/u send out labs including serum GB antibodies Continue PT/OT Chest pain, resolved EKG reviewed Initial troponin negative CTA chest negative TTE :Mild concentric LVH, EF of 65 to 70%, grade 1 diastolic dysfunction, trace aortic regurgitation, mild aortic root dilatation of 4.2 cm History of hepatitis Hep C ab +, but RNA negative BPH Continue home medications Wilder removed earlier. Had to be reinserted for urinary retention. May need wilder ongoing vs voiding trial later Monitor urine output as patient has h/o intermittent straight cath at care home per RN Depression Continue home medications DVT prophylaxis Lovenox Full code I spent a total of 45 minutes coordinating, documenting and providing care for this patient excluding time spent in performance of separately billed services Admission and Anticipated Discharge Date Admission Date: October 05, 2023 Subjective Patient seen and examined Limb weakness is improving Still reports headache and muscle aches No breathing problems Denied any other complaints Did not get MRI last night due to claustrophobia Physical Exam Constitutional: + well hydrated; no acute distress Eyes: PERRL, conjunctivae normal, anicteric sclerae ENMT: external ear and nose normal, oropharynx normal Respiratory: normal respiratory effort, lungs clear to auscultation Cardiovascular: RRR, no murmur, no edema Gastrointestinal (Abdomen): normal bowel sounds, soft, nontender, no hepatosplenomegaly Musculoskeletal: No pedal edema Neurologic: PERRL, EOMI, accommodation nl, no face palsy, no dysarthria Power is 5/5 in UE, 4/5 in LE Psychiatric: A+Ox3, euthymic affect Genitourinary: Wilder in situ Results & Data Results & Data Vital Signs (Past 12 Hours) Vital Signs Temp Pulse Pulse Resp BP Pulse Ox O2 Del Method 10/09/23 11:21 36.3 C L 56 L 16 136/78 95 Room Air 10/09/23 10:23 Room Air 10/09/23 07:28 36.5 C 58 L 18 124/86 95 Room Air 10/09/23 07:24 60 10/09/23 03:01 36.4 C L 49 L 20 139/74 97 Room Air Laboratory Results Abnormal lab results 10/05/23 10/09/23 10/09/23 Range/Units 04:22 05:43 09:26 WBC 3.71 L (4.8-10.8) K/ul RBC 3.98 L (4.70-6.10) M/uL Hgb 12.8 L (14.0-18.0) g/dl Hct 36.2 L (42.0-52.0) % Sodium 129 L (136-145) mmol/L Chloride 97 L (98-107) mmol/L Osmolality 278 L (280-300) mOsm/kg Globulin 4.8 H (2.5-4.0) gm/dl Albumin/Globulin Ratio 0.7 L (0.9-2) Urine Osmolality (500-800) mOsm/kg Hepatitis C Ab (EIA) REACTIVE A (NON-REACTIVE) 10/09/23 Range/Units 13:50 WBC (4.8-10.8) K/ul RBC (4.70-6.10) M/uL Hgb (14.0-18.0) g/dl Hct (42.0-52.0) % Sodium (136-145) mmol/L Chloride (98-107) mmol/L Osmolality (280-300) mOsm/kg Globulin (2.5-4.0) gm/dl Albumin/Globulin Ratio (0.9-2) Urine Osmolality 374 L (500-800) mOsm/kg Hepatitis C Ab (EIA) (NON-REACTIVE)
[2023-10-09 13:04] LABS: Hepatitis C Vira RNA (Log) PCR <1.18 NOT DETECTED Log IU/mL (NOT DETECTED); Hepatitis C Viral RNA by PCR <15 NOT DETECTED IU/mL (NOT DETECTED)
[2023-10-10 07:00] LABS: Hemoglobin 12.7 g/dl (14.0-18.0); Mean Corpuscular Hemoglobin 31.9 pg (25.0-34.0); Mean Corpuscular Hgb Conc 35.3 g/dL (32.0-36.0); Mean Corpuscular Volume 90.5 fL (80.0-100.0); Mean Platelet Volume 9.8 fL (9.4-12.4); Platelet Count 371 K/uL (130-400); RDW Standard Deviation 39.8 fL (36.4-46.3); Red Blood Count 3.98 M/uL (4.70-6.10); White Blood Count 4.26 K/ul (4.8-10.8)
[2023-10-10 07:19] LABS: Albumin Globulin Ratio 0.7 (0.9-2); Albumin Level 3.4 gm/dl (3.4-5.0); BUN Creatinine Ratio 20.9 (10-20); Bilirubin,Total 0.5 mg/dl (0.2-1.0); Calcium 8.8 mg/dl (8.6-10.3); Creatinine Clr Calc Pharmacy 95.1 ml/min; Est GFR (African American) 109.2 ml/min; Est GFR (Non-African American) 94.3 ml/min; Globulin 5.2 gm/dl (2.5-4.0); Magnesium 1.9 mg/dl (1.7-2.4); Phosphorus 3.3 mg/dl (2.5-4.9); Potassium 4.4 mmol/L (3.5-5.1); Total Protein 8.6 gm/dl (6.0-8.3)
[2023-10-10] MEDS: HYDROmorphone INJ 0.5 MG/0.5 ML SYR IV PRN (13:07)
--- NOTE | 2023-10-10 14:23 | Electrocardiogram Report ---
Test Reason : Blood Pressure : / mmHG Vent. Rate : 056 BPM Atrial Rate : 056 BPM P-R Int : 166 ms QRS Dur : 098 ms QT Int : 424 ms P-R-T Axes : 028 030 037 degrees QTc Int : 409 ms Sinus bradycardia Otherwise normal ECG When compared with ECG of 04-OCT-2023 19:42, Vent. rate has decreased BY 52 BPM Confirmed by Marvin Loyd ([id number]) on 10/10/2023 2:22:41 PM Referred By: [facility] Confirmed By:David Loyd
--- NOTE | 2023-10-10 15:24 | Hospitalist Progress Note ---
Date of Service October 10, 2023 Assessment & Plan (1) Bilateral leg weakness: Plan: 58-year-old male with past medical history significant for BPH, depression comes because of body aches, fever, weakness in lower extremity after he got pneumococcal and shingles shots a day prior to presentation. Patient complained of headache, chest pain, abdominal pain, pain in the legs. Reported progressive progression of weakness in a cephalocaudal direction History of smoking 0.5ppd x 40 years, quit 1 yr ago since being in [facility]. 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 Empirical antibiotic and antifungal discontinued Appreciate neurology input Continue IVIG as per neurology NIF PRN MRI brain, spine pending: Deferred on multiple occasions due to claustrophobia --CSF studies, immunological tests pending -serum GB antibodies pending Continue PT/OT Needs follow-up with neurology on discharge Hyponatremia Likely due to IVIG administration Serum osmolality 278 Urine osmolality 374 Urine sodium 107 TSH pending Continue fluid restriction Nephrology consulted Monitor sodium levels closely Chest pain, resolved Sinus bradycardia EKG reviewed Initial troponin negative CTA chest negative TTE :Mild concentric LVH, EF of 65 to 70%, grade 1 diastolic dysfunction, trace aortic regurgitation, mild aortic root dilatation of 4.2 cm Monitor History of hepatitis Hep C ab +, but RNA negative Mild transaminitis ? Secondary to IVIG's Avoid hepatotoxic agents as able Monitor LFTs Left thyroid nodule Incidental finding on CT CT showed:Left thyroid nodule measuring 2 cm. Further workup as outpatient BPH Continue home medications Failed voiding trial earlier Monitor urine output as patient has h/o intermittent straight cath at [facility] per RN Continue Larson for now Depression Continue home medications DVT Px: Lovenox SQ Code Status Full code Admission and Anticipated Discharge Date Admission Date: October 05, 2023 Subjective Patient is seen and examined at bedside States having headache associated with bilateral hip pain Reports generalized weakness Denies any chest pain, dyspnea, nausea, vomiting, abdominal pain Present daughter at bedside Review of Systems Review of Systems: All systems reviewed & are unremarkable except as noted in Subjective Physical Exam Physical Exam: Physical Exam: Vitals signs as noted above General Appearance:Moderately built and nourished, no apparent distress Head: normocephalic, Atraumatic Eyes: normal inspection, EOMI Neck: supple, Trachea midline Respiratory/Chest: Normal breath sounds, CTA, No accessory muscle use Cardiovascular: S1, S2, No murmur Abdomen/GI:Soft, Non tender, Bowel sounds present Extremities/Musculoskeletal:normal inspection, no edema Neurologic/Psych:AAOX3, grossly no focal neurological deficits Skin: normal color, warm Results & Data Results & Data Vital Signs (Past 12 Hours) Vital Signs Temp Pulse Pulse Resp BP Pulse Ox O2 Del Method 10/10/23 15:00 36.6 C 63 19 138/65 93 Room Air 10/10/23 11:52 36.3 C L 54 L 19 160/73 H 95 Room Air 10/10/23 09:00 49 L 10/10/23 07:05 36.4 C L 48 L 20 136/82 95 Room Air Laboratory Results Short CBC 10/10/23 Range/Units 06:09 WBC 4.26 L (4.8-10.8) K/ul Hgb 12.7 L (14.0-18.0) g/dl Hct 36.0 L (42.0-52.0) % Plt Count 371 (130-400) K/uL BMP 10/10/23 06:09 Sodium 125 L Potassium 4.4 Chloride 97 L Carbon Dioxide 25 BUN 18 Creatinine 0.86 Glucose 79 Calcium 8.8 Liver Function 10/10/23 Range/Units 06:09 Total Bilirubin 0.5 (0.2-1.0) mg/dl AST 183 H (13-39) U/L ALT 136 H (7-52) U/L Alkaline Phosphatase 99 (34-104) U/L Albumin 3.4 (3.4-5.0) gm/dl
[2023-10-10] MEDS: LORazepam 1 MG in SYRINGE 0.25 ML IV PRN (16:15)
--- NOTE | 2023-10-10 17:10 | Magnetic Resonance Report ---
MR brain wo con CLINICAL HISTORY: Progressive muscle weakness TECHNIQUE: Multiplanar and multisequence MR images of the brain were obtained without intravenous con trast. Comparison: None available at the time of this dictation. FINDINGS: No abnormal restricted diffusion is identified. The white matter is unremarkable. The ventricular sys tem is normal in appearance. No mass is seen. There is no mass effect or midline shift. There is no e vidence of acute intraparenchymal hemorrhage. No extra axial fluid collections are seen. The corpus c allosum, pituitary gland, and cerebellar tonsils appear grossly unremarkable. Flow voids of the major intracranial arterial vessels are identified. The imaged portions of the para nasal sinuses, mastoid air cells, and orbits are unremarkable. IMPRESSION: No acute abnormalities. ACT 112: Negative or not required by law. Electronically signed by: Daryn Nowak M.D. 10/10/2023 5:09 PM
--- NOTE | 2023-10-10 17:44 | Communication Note ---
Date of Service: October 10, 2023 Discussed directly with primary hospitalist team Completed tx with IVIG Weakness persists in lower extremities > upper extremities Recommend continue with therapy/rehabilitative recommendations MRI spine if tolerated VTE prophylaxis Serum GBS antibodies sent Follow up with Neurology
[2023-10-10] MEDS: [UNRECOGNIZED DRUG - OTHER] IV SCH (17:55)
[2023-10-10] MEDS: IMMUN GLOBG(IGG)/MALT/IGA OV50 100 ML IV SCH (18:49)
[2023-10-10] MEDS: IMMUN GLOBG(IGG)/MALT/IGA OV50 200 ML IV SCH (19:40)
[2023-10-10] MEDS: OPTIRAY 320 500ml IV ONE (20:47)
--- NOTE | 2023-10-10 21:37 | CT Scan Report ---
Exam(s): CT C SPINE IV Amt: 82ml EXAM: CT Cervical Spine With Intravenous Contrast CLINICAL HISTORY: Reason for exam: Progressive weakness. TECHNIQUE: Axial computed tomography images of the cervical spine with intravenous contrast. Automated exposure control was utilized for the study. A dose lowering technique was utilized adhering to the principles of ALARA. CONTRAST: Patient received 82ml of IV contrast COMPARISON: No relevant prior studies available. FINDINGS: No acute fracture or malalignment. Reversal of the normal cervical lordosis. Mild to moderate degenerative disc disease most pronounced at C5-6 and C6-7. No acute abnormality within the soft tissues. No evidence of infection. C2-3: No spinal canal stenosis. Severe left and mild right foraminal stenosis. C3-4: Disc osteophyte. No canal stenosis. Severe left and mild right foraminal stenosis. C4-5: Disc osteophyte with uncovertebral hypertrophy. Mild canal stenosis. Severe bilateral foraminal stenosis. C5-6: Trace disc osteophyte. Mild canal stenosis. Moderate left and severe right foraminal stenosis. C6-7: Disc osteophyte. Moderate canal stenosis. Severe bilateral foraminal stenosis. C7-T1: No spinal canal stenosis. Mild foraminal stenosis on the right. None on the left. IMPRESSION: 1. No acute abnormality. 2. Degenerative spondylosis. Electronically signed by: Carlos Field MD 10/10/23 21:36 PM
--- NOTE | 2023-10-10 21:39 | CT Scan Report ---
Exam(s): CT T SPINE IV Amt: 82ml EXAM: CT Thoracic Spine With Intravenous Contrast CLINICAL HISTORY: Reason for exam: Progressive weakness. TECHNIQUE: Axial computed tomography images of the thoracic spine with intravenous contrast. CTDI is 39 mGy and DLP is 1215 mGy-cm. Automated exposure control was utilized for the study. A dose lowering technique was utilized adhering to the principles of ALARA. CONTRAST: Patient received 82ml of IV contrast COMPARISON: No relevant prior studies available. FINDINGS: Vertebrae: No acute fracture. Normal alignment. No spinal canal or foraminal stenosis within the thoracic spine. No evidence of infection. Soft tissues: Unremarkable. IMPRESSION: No acute abnormality. Electronically signed by: Carlos Field MD 10/10/23 21:38 PM
--- NOTE | 2023-10-10 21:53 | CT Scan Report ---
Exam(s): CT L SPINE IV Amt: 82ml EXAM: CT Lumbar Spine With Intravenous Contrast CLINICAL HISTORY: Reason for exam: Progressive weakness. TECHNIQUE: Axial computed tomography images of the lumbar spine with intravenous contrast. CTDI is 18.2 mGy and DLP is 370 mGy-cm. Automated exposure control was utilized for the study. A dose lowering technique was utilized adhering to the principles of ALARA. CONTRAST: Patient received 82ml of IV contrast COMPARISON: No relevant prior studies available. FINDINGS: Vertebrae: Unremarkable. No acute fracture. Other bones/joints: No acute fracture or malalignment. The disc spaces are preserved. No disc bulge, spinal canal stenosis, or foraminal stenosis. No infectious changes. Soft tissues: Unremarkable. IMPRESSION: No acute abnormality. No stenosis. Electronically signed by: Carlos Field MD 10/10/23 21:51 PM
[2023-10-10] MEDS: CALCIUM CARBONATE 500 MG CHEWABLE TAB PO PRN (22:30)
[2023-10-11 06:52] LABS: Hematocrit (blood only) 36.6 % (42.0-52.0); Mean Corpuscular Hemoglobin 32.3 pg (25.0-34.0); Mean Corpuscular Hgb Conc 35.5 g/dL (32.0-36.0); Mean Platelet Volume 9.8 fL (9.4-12.4); Platelet Count 394 K/uL (130-400); RDW Coefficient of Variation 12.2 % (11.5-14.5); RDW Standard Deviation 40.4 fL (36.4-46.3); Red Blood Count 4.02 M/uL (4.70-6.10)
[2023-10-11 07:15] LABS: Alanine Aminotransferase 158 U/L (7-52); Albumin Level 3.6 gm/dl (3.4-5.0); Alkaline Phosphatase 89 U/L (34-104); Anion Gap 3 (3-11); Aspartate Aminotransferase 151 U/L (13-39); BUN Creatinine Ratio 21.4 (10-20); Bilirubin,Total 0.7 mg/dl (0.2-1.0); Blood Urea Nitrogen 18 mg/dl (6-23); Calcium 9.4 mg/dl (8.6-10.3); Carbon Dioxide 25 mmol/L (21-32); Chloride 96 mmol/L (98-107); Creatinine Clr Calc Pharmacy 97.3 ml/min; Est GFR (African American) 110.3 ml/min; Est GFR (Non-African American) 95.2 ml/min; Glucose 87 mg/dl (70-99(Fasting)); Potassium 4.7 mmol/L (3.5-5.1); Sodium 124 mmol/L (136-145); Total Protein 9.6 gm/dl (6.0-8.3)
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
[2023-10-11] MEDS: FUROSEMIDE INJ 20 MG/2 ML VIAL IV SCH (08:41)
[2023-10-11] MEDS: ACETAMINOPHEN 1,000 MG/100 ML VIAL IV PRN (08:42)
[2023-10-11] MEDS: UREA (UREA-NA) 15 GM PACK PO SCH (09:12)
[2023-10-11] MEDS: MoRPHine SULFATE 2 MG/ML CARP IV PRN (10:31)
--- NOTE | 2023-10-11 15:54 | Hospitalist Progress Note ---
Date of Service October 11, 2023 Assessment & Plan (1) Bilateral leg weakness: Plan: 58-year-old male with past medical history significant for BPH, depression comes because of body aches, fever, weakness in lower extremity after he got pneumococcal and shingles shots a day prior to presentation. Patient complained of headache, chest pain, abdominal pain, pain in the legs. Reported progressive progression of weakness in a cephalocaudal direction History of smoking 0.5ppd x 40 years, quit 1 yr ago since being in [facility]. Quit alcohol 1 yr ago Used to do IV drugs 30years ago Bilateral leg weakness Fever Illness after shingles and pneumococcal vaccine one day prior Concern for possible Acute demyelinating probably radiculopathy/GBS --CT head, CTA chest, CT abdomen pelvis with IV contrast unremarkable --MRI brain:No acute abnormalities --Cervical CT:No acute abnormality. Degenerative spondylosis. --Lumbar CT:No acute abnormality. No stenosis. -Thoracic CT: No acute abnormality. 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 infection Empirical antibiotic and antifungal discontinued Appreciate neurology input Completed 5 day course of IVIGs NIF PRN MRI brain, spine pending: Deferred on multiple occasions due to claustrophobia --CSF studies, immunological tests pending -serum GB antibodies pending Continue PT/OT Needs follow-up with neurology on discharge May benefit from rehab placement Hyponatremia Likely due to IVIGs, Trileptal Serum osmolality 278 Urine osmolality 374 Urine sodium 107 TSH normal Continue fluid restriction Monitor sodium levels closely Appreciate nephrology input Started on IV diuretics, Urea per nephrology 124 today Chest pain, resolved Sinus bradycardia EKG reviewed Initial troponin negative CTA chest negative TTE :Mild concentric LVH, EF of 65 to 70%, grade 1 diastolic dysfunction, trace aortic regurgitation, mild aortic root dilatation of 4.2 cm Monitor History of hepatitis Hep C ab +, but RNA negative Mild transaminitis ? Secondary to IVIG's Avoid hepatotoxic agents as able Monitor LFTs Left thyroid nodule Incidental finding on CT CT showed:Left thyroid nodule measuring 2 cm. Further workup as outpatient BPH Continue home medications Failed voiding trial earlier Monitor urine output as patient has h/o intermittent straight cath at [facility] per RN Continue Larson for now Depression Continue home medications DVT Px: Lovenox SQ Code Status Full code Admission and Anticipated Discharge Date Admission Date: October 05, 2023 Subjective Patient is seen and examined at bedside Reports having poor sleep overnight Still has headache and bilateral hip pain Discussed with nephrology today Persistent generalized weakness Denies any chest pain, dyspnea, nausea, vomiting, abdominal pain Nursing Home guards at bedside Review of Systems Review of Systems: All systems reviewed & are unremarkable except as noted in Subjective Physical Exam Physical Exam: Physical Exam: Vitals signs as noted above General Appearance:Moderately built and nourished, no apparent distress Head: normocephalic, Atraumatic Eyes: normal inspection, EOMI Neck: supple, Trachea midline Respiratory/Chest: Normal breath sounds, CTA, No accessory muscle use Cardiovascular: S1, S2, No murmur Abdomen/GI:Soft, Non tender, Bowel sounds present Extremities/Musculoskeletal:normal inspection, no edema Neurologic/Psych:AAOX3, grossly no focal neurological deficits Skin: normal color, warm Results & Data Results & Data Vital Signs (Past 12 Hours) Vital Signs Temp Pulse Pulse Resp BP Pulse Ox O2 Del Method 10/11/23 15:32 36.4 C L 66 18 124/74 92 Room Air 10/11/23 11:45 36.4 C L 66 18 124/74 92 Room Air 10/11/23 08:09 Room Air 10/11/23 07:29 36.6 C 55 L 18 146/76 H 91 Room Air 10/11/23 07:00 52 L Laboratory Results Short CBC 10/11/23 Range/Units 05:27 WBC 5.50 (4.8-10.8) K/ul Hgb 13.0 L (14.0-18.0) g/dl Hct 36.6 L (42.0-52.0) % Plt Count 394 (130-400) K/uL BMP 10/11/23 05:27 Sodium 124 L Potassium 4.7 Chloride 96 L Carbon Dioxide 25 BUN 18 Creatinine 0.84 Glucose 87 Calcium 9.4 Liver Function 10/11/23 Range/Units 05:27 Total Bilirubin 0.7 (0.2-1.0) mg/dl Direct Bilirubin TNP AST 151 H (13-39) U/L ALT 158 H (7-52) U/L Alkaline Phosphatase 89 (34-104) U/L Albumin 3.6 (3.4-5.0) gm/dl
[2023-10-11 21:34] LABS: Calcium 9.8 mg/dl (8.6-10.3); Potassium 4.6 mmol/L (3.5-5.1)
[2023-10-11 21:39] LABS: BUN Creatinine Ratio 23.3 (10-20); Creatinine Clr Calc Pharmacy 68.1 ml/min; Est GFR (African American) 75.7 ml/min; Est GFR (Non-African American) 65.3 ml/min
[2023-10-12 07:47] LABS: Hematocrit (blood only) 39.2 % (42.0-52.0); Hemoglobin 14.1 g/dl (14.0-18.0); Mean Corpuscular Hemoglobin 32.3 pg (25.0-34.0); Mean Corpuscular Volume 89.7 fL (80.0-100.0); Mean Platelet Volume 9.8 fL (9.4-12.4); Platelet Count 455 K/uL (130-400); RDW Coefficient of Variation 12.6 % (11.5-14.5); RDW Standard Deviation 40.5 fL (36.4-46.3); Red Blood Count 4.37 M/uL (4.70-6.10); White Blood Count 6.24 K/ul (4.8-10.8)
[2023-10-12 08:07] LABS: Albumin Level 3.9 gm/dl (3.4-5.0); BUN Creatinine Ratio 38.6 (10-20); Bilirubin Direct 0.1 mg/dl (0-0.2); Bilirubin,Total 0.8 mg/dl (0.2-1.0); Calcium 9.9 mg/dl (8.6-10.3); Creatinine Clr Calc Pharmacy 81.9 ml/min; Est GFR (African American) 93.3 ml/min; Est GFR (Non-African American) 80.5 ml/min; Potassium 4.4 mmol/L (3.5-5.1)
--- NOTE | 2023-10-12 10:57 | XRay Report ---
XR hip 1V RT w pelvis HISTORY: 58 years-old Male hip pain acute bilateral hip pain COMPARISON: CT exam 10/05/2023 TECHNIQUE: AP view the pelvis with frog-leg view of the right hip FINDINGS: Penile implant device is noted. Mild osteoarthritis of the hips. There is no acute fracture, dislocat ion or avascular necrosis. Unremarkable soft tissues. IMPRESSION: Mild osteoarthritis without acute fracture. ACT 112: Negative or not required by law. The above report was generated using voice recognition software. It may contain grammatical, syntax o r spelling errors. Electronically signed by: Dwayne Broussard M.D. 10/12/2023 10:56 AM
[2023-10-12] MEDS: PANTOprazole 40 MG TAB PO SCH (11:29)
--- NOTE | 2023-10-12 17:14 | Hospitalist Progress Note ---
Date of Service October 12, 2023 Assessment & Plan (1) Bilateral leg weakness: Plan: 58-year-old male with past medical history significant for BPH, depression comes because of body aches, fever, weakness in lower extremity after he got pneumococcal and shingles shots a day prior to presentation. Patient complained of headache, chest pain, abdominal pain, pain in the legs. Reported progressive progression of weakness in a cephalocaudal direction History of smoking 0.5ppd x 40 years, quit 1 yr ago since being in [facility]. Quit alcohol 1 yr ago H/O IV drugs 30years ago Bilateral leg weakness Fever Illness after shingles and pneumococcal vaccine one day prior Concern for possible Acute demyelinating probably radiculopathy/GBS --CT head, CTA chest, CT abdomen pelvis with IV contrast unremarkable --MRI brain:No acute abnormalities --Cervical CT:No acute abnormality. Degenerative spondylosis. --Lumbar CT:No acute abnormality. No stenosis. -Thoracic CT: No acute abnormality. UA is unremarkable Procalcitonin negative Blood cultures negative so far Resp PCR negative -Obtain TSH--pending --S/P S/P LP on 10/06/23 --Patient could not get MRI spine due to severe claustrophobia CSF analysis ruled out BROOM STITCHER infection Empirical antibiotic and antifungal discontinued Appreciate neurology input Completed 5 day course of IVIGs NIF PRN MRI brain, spine pending: Deferred on multiple occasions due to claustrophobia --CSF studies, immunological tests pending -serum GB antibodies pending Continue PT/OT Needs follow-up with neurology on discharge Generalized weakness slowly improving Hyponatremia Likely due to IVIGs, Trileptal Serum osmolality 278 Urine osmolality 374 Urine sodium 107 TSH normal Continue fluid restriction Monitor sodium levels closely Appreciate nephrology input Started on IV diuretics, Urea per nephrology 127 today Sodium level slowly improving Chest pain, resolved Sinus bradycardia EKG reviewed Initial troponin negative CTA chest negative TTE :Mild concentric LVH, EF of 65 to 70%, grade 1 diastolic dysfunction, trace aortic regurgitation, mild aortic root dilatation of 4.2 cm Monitor History of hepatitis Hep C ab +, but RNA negative Mild transaminitis ? Secondary to IVIG's Avoid hepatotoxic agents as able Monitor LFTs Left thyroid nodule Incidental finding on CT CT showed:Left thyroid nodule measuring 2 cm. Further workup as outpatient BPH Continue home medications Failed voiding trial earlier Monitor urine output as patient has h/o intermittent straight cath at [facility] per RN Continue Larson for now Depression Continue home medications DVT Px: Lovenox SQ Code Status Full code Disposition [facility] facility as able Admission and Anticipated Discharge Date Admission Date: October 05, 2023 Subjective Patient is seen and examined at bedside Reports left hip pain with ambulation today Still has headache but better No other complaints Weakness slowly improving Denies any chest pain, dyspnea, nausea, vomiting, abdominal pain Retirement guards at bedside Review of Systems Review of Systems: All systems reviewed & are unremarkable except as noted in Subjective Physical Exam Physical Exam: Physical Exam: Vitals signs as noted above General Appearance:Moderately built and nourished, no apparent distress Head: normocephalic, Atraumatic Eyes: normal inspection, EOMI Neck: supple, Trachea midline Respiratory/Chest: Normal breath sounds, CTA, No accessory muscle use Cardiovascular: S1, S2, No murmur Abdomen/GI:Soft, Non tender, Bowel sounds present Extremities/Musculoskeletal:normal inspection, no edema Neurologic/Psych:AAOX3, grossly no focal neurological deficits Skin: normal color, warm Results & Data Results & Data Vital Signs (Past 12 Hours) Vital Signs Temp Pulse Pulse Resp BP Pulse Ox O2 Del Method 10/12/23 15:00 36.7 C 60 20 130/60 97 Room Air 10/12/23 12:00 36.9 C 71 18 113/68 94 Room Air 10/12/23 09:14 64 10/12/23 07:10 37.0 C 63 20 127/71 93 Room Air Laboratory Results Short CBC 10/12/23 Range/Units 06:54 WBC 6.24 (4.8-10.8) K/ul Hgb 14.1 (14.0-18.0) g/dl Hct 39.2 L (42.0-52.0) % Plt Count 455 H (130-400) K/uL BMP 10/11/23 10/12/23 20:58 06:54 Sodium 127 L 127 L Potassium 4.6 4.4 Chloride 95 L 98 Carbon Dioxide 28 24 BUN 28 H 39 H Creatinine 1.20 D 1.01 Glucose 103 H 101 H Calcium 9.8 9.9 Liver Function 10/12/23 Range/Units 06:54 Total Bilirubin 0.8 (0.2-1.0) mg/dl Direct Bilirubin 0.1 (0-0.2) mg/dl AST 216 H (13-39) U/L ALT 277 H (7-52) U/L Alkaline Phosphatase 121 H (34-104) U/L Albumin 3.9 (3.4-5.0) gm/dl
--- NOTE | 2023-10-12 18:15 | Nephrology Progress Note ---
Date of Service October 12, 2023 Assessment & Plan (1) Hyponatremia: Plan: worsening hypoosmolar hyponatremia, now severe, so far not symptomatic could be IVIG but trileptal may also be a culprit; pt states he has no hx of seizure disorder and does not take trileptal outside of hospital; however we have it listed as MANAGER STATISTICS medication. goal sNa is no more than 133 in am; unusual case; not sigifnicantly hypoosmolar on 10/09 assessment euvolemic on exam; though he his 8.6 L negative on the admission as of this AM; has not had diuretics prior to today for this admission >have asked hospitalist to d/w neurology for trileptal alternative and to recheck whether he takes trileptal or not -continue FR to 1.5 L toward which protein shakes don't count >>>pls ensure he's offered protein shakes at least bid ->>needs daily STANDING weight and strict I/O >cont lasix 10 mg tid IV >held am urea 15 gm bid but will resume -daily bmp >started potassium supplement daily 20 mEq Admission and Anticipated Discharge Date Admission Date: October 05, 2023 Subjective legs /arms getting stronger. feels some malaise, sligth N today. no sob, no edema Review of Systems 2 Review of Systems: All systems reviewed & are unremarkable except as noted in Subjective Physical Exam 2 Constitutional: well developed and well nourished Eyes: EOM intact bilaterally ENMT: Ears: no external ear abnormality Nose: no external nose abnormality Mouth: + dry oral mucous membranes Neck: no nuchal rigidity Respiratory: normal respiratory effort Auscultation: + diminished lung sounds Cardiovascular: RRR, no murmur, no edema Gastrointestinal (Abdomen): Inspection/Auscultation: normal bowel sounds P ercussion/Palpation: abdomen soft; abdomen nontender Musculoskeletal: Extremities: + abnormal strength Skin: no rashes, warm and dry Psychiatric: Orientation: alert and oriented x 3 Results & Data Vital Signs (Past 12 Hours) Vital Signs Temp Pulse Pulse Resp BP Pulse Ox O2 Del Method 10/12/23 15:00 36.7 C 60 20 130/60 97 Room Air 10/12/23 12:00 36.9 C 71 18 113/68 94 Room Air 10/12/23 09:14 64 10/12/23 07:10 37.0 C 63 20 127/71 93 Room Air Laboratory Results 10/12/23 06:54 10/12/23 06:54
[2023-10-12] MEDS: POTASSIUM CHLORIDE CRTAB 20 MEQ TABCR PO SCH (18:29)
[2023-10-13 08:29] LABS: Albumin Level 4.1 gm/dl (3.4-5.0); Bilirubin Direct 0.2 mg/dl (0-0.2); Calcium 10.2 mg/dl (8.6-10.3); Potassium 4.7 mmol/L (3.5-5.1)
[2023-10-13 08:35] LABS: BUN Creatinine Ratio 39.6 (10-20); Creatinine Clr Calc Pharmacy 81.9 ml/min; Est GFR (African American) 93.3 ml/min; Est GFR (Non-African American) 80.5 ml/min; Total Protein 9.9 gm/dl (6.0-8.3)
--- NOTE | 2023-10-13 11:24 | Nephrology Progress Note ---
Date of Service October 13, 2023 Assessment & Plan Admission and Anticipated Discharge Date Admission Date: October 05, 2023 Subjective Assessment & Plan (1) Hyponatremia: Plan: euvolemic hyponatremia--urine Osm 413 so consistent with SIADH--? relation with IVIG and trileptal. now severe, so far not symptomatic. 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 Can restart as per primary team. Continue Lasix but will change to oral equivalent--of 20 po tid. FFR 1500 ml per day. Stop Urea-na to see how he does without it. Subjective C/o Lot of pain asking for good Pain med. Making lot of urine. Review of Systems Review of Systems: All systems reviewed & are unremarkable except as noted in Subjective Physical Exam Constitutional: well developed and well nourished Eyes: EOM intact bilaterally ENMT: Ears: no external ear abnormality Nose: no external nose abnormality Mouth: + dry oral mucous membranes Neck: no nuchal rigidity Respiratory: normal respiratory effort Auscultation: + diminished lung sounds Cardiovascular: RRR, no murmur, no edema Gastrointestinal (Abdomen): Inspection/Auscultation: normal bowel sounds Percussion/Palpation: abdomen soft; abdomen nontender Musculoskeletal: Extremities: + abnormal strength Skin: no rashes, warm and dry Psychiatric: Orientation: alert and oriented x 3 Results & Data Vital Signs (Past 12 Hours) Vital Signs Temp Pulse Resp BP Pulse Ox O2 Del Method 10/13/23 07:00 37.0 C 95 H 20 113/66 97 Room Air 10/13/23 02:58 36.7 C 88 18 151/91 H 92 Room Air
[2023-10-13] MEDS: FUROSEMIDE 20 MG TAB PO SCH (12:49)
[2023-10-13] MEDS ORDERED: FUROSEMIDE 20 MG TAB PO SCH (14:00)
--- NOTE | 2023-10-13 15:40 | Hospitalist Progress Note ---
Date of Service October 13, 2023 Assessment & Plan (1) Bilateral leg weakness: Plan: 58-year-old male with past medical history significant for BPH, depression comes because of body aches, fever, weakness in lower extremity after he got pneumococcal and shingles shots a day prior to presentation. Patient complained of headache, chest pain, abdominal pain, pain in the legs. Reported progressive progression of weakness in a cephalocaudal direction History of smoking 0.5ppd x 40 years, quit 1 yr ago since being in assisted. Quit alcohol 1 yr ago H/O IV drugs 30years ago Bilateral leg weakness Fever Illness after shingles and pneumococcal vaccine one day prior Concern for possible Acute demyelinating probably radiculopathy/GBS --CT head, CTA chest, CT abdomen pelvis with IV contrast unremarkable --MRI brain:No acute abnormalities --Cervical CT:No acute abnormality. Degenerative spondylosis. --Lumbar CT:No acute abnormality. No stenosis. -Thoracic CT: No acute abnormality. UA is unremarkable Procalcitonin negative Blood cultures negative Resp PCR negative -TSH normal --S/P S/P LP on 10/06/23 --Patient could not get MRI spine due to severe claustrophobia CSF analysis ruled out CLINICAL RADIOLOGIST infection Empirical antibiotic and antifungal discontinued Appreciate neurology input Completed 5 day course of IVIGs NIF PRN MRI brain, spine pending: Deferred on multiple occasions due to claustrophobia --CSF studies, immunological tests pending -serum GB antibodies pending Continue PT/OT Needs follow-up with neurology on discharge Generalized weakness improved Hyponatremia Likely due to IVIGs, Trileptal Serum osmolality 278 Urine osmolality 374 Urine sodium 107 TSH normal Continue fluid restriction Monitor sodium levels closely Appreciate nephrology input IV Lasix, urea discontinued 130 today Started on oral Lasix 20 mg TID Chest pain, resolved Sinus bradycardia EKG reviewed Initial troponin negative CTA chest negative TTE :Mild concentric LVH, EF of 65 to 70%, grade 1 diastolic dysfunction, trace aortic regurgitation, mild aortic root dilatation of 4.2 cm Monitor History of hepatitis Hep C ab +, but RNA negative Mild transaminitis ? Secondary to IVIG's Avoid hepatotoxic agents as able Monitor LFTs LFTs trended down Left thyroid nodule Incidental finding on CT CT showed:Left thyroid nodule measuring 2 cm. Further workup as outpatient BPH Continue home medications Failed voiding trial earlier Monitor urine output as patient has h/o intermittent straight cath at assisted per RN Continue Larson for now Depression Continue home medications DVT Px: Lovenox SQ Code Status Full code Disposition [facility] facility as able Admission and Anticipated Discharge Date Admission Date: October 05, 2023 Subjective Patient is seen and examined at bedside No new complaints Still has some hip discomfort Discussed with nephrology today Sodium levels improving Denies any chest pain, dyspnea, nausea, vomiting, abdominal pain Senior Care guards at bedside Review of Systems Review of Systems: All systems reviewed & are unremarkable except as noted in Subjective Physical Exam Physical Exam: Physical Exam: Vitals signs as noted above General Appearance:Moderately built and nourished, no apparent distress Head: normocephalic, Atraumatic Eyes: normal inspection, EOMI Neck: supple, Trachea midline Respiratory/Chest: Normal breath sounds, CTA, No accessory muscle use Cardiovascular: S1, S2, No murmur Abdomen/GI:Soft, Non tender, Bowel sounds present Extremities/Musculoskeletal:normal inspection, no edema Neurologic/Psych:AAOX3, grossly no focal neurological deficits Skin: normal color, warm Results & Data Results & Data Vital Signs (Past 12 Hours) Vital Signs Temp Pulse Pulse Resp BP Pulse Ox O2 Del Method 10/13/23 15:00 72 10/13/23 07:00 37.0 C 95 H 20 113/66 97 Room Air Laboratory Results [facility] 10/13/23 07:33 Sodium 130 L Potassium 4.7 Chloride 101 Carbon Dioxide 25 BUN 40 H Creatinine 1.01 Glucose 91 Calcium 10.2 Liver Function 10/13/23 Range/Units 07:33 Total Bilirubin 1.0 (0.2-1.0) mg/dl Direct Bilirubin 0.2 (0-0.2) mg/dl AST 113 H (13-39) U/L ALT 210 H (7-52) U/L Alkaline Phosphatase 114 H (34-104) U/L Albumin 4.1 (3.4-5.0) gm/dl
[2023-10-14 07:22] LABS: Potassium 4.7 mmol/L (3.5-5.1)
[2023-10-14 07:28] LABS: BUN Creatinine Ratio 38.4 (10-20); Creatinine Clr Calc Pharmacy 83.7 ml/min; Est GFR (African American) 95.5 ml/min; Est GFR (Non-African American) 82.4 ml/min
--- NOTE | 2023-10-14 11:58 | Hospitalist Progress Note ---
Date of Service October 14, 2023 Assessment & Plan (1) Bilateral leg weakness: Plan: 58-year-old male with past medical history significant for BPH, depression comes because of body aches, fever, weakness in lower extremity after he got pneumococcal and shingles shots a day prior to presentation. Patient complained of headache, chest pain, abdominal pain, pain in the legs. Reported progressive progression of weakness in a cephalocaudal direction History of smoking 0.5ppd x 40 years, quit 1 yr ago since being in long-term. Quit alcohol 1 yr ago H/O IV drugs 30years ago Bilateral leg weakness Fever Illness after shingles and pneumococcal vaccine one day prior Concern for possible Acute demyelinating probably radiculopathy/GBS --CT head, CTA chest, CT abdomen pelvis with IV contrast unremarkable --MRI brain:No acute abnormalities --Cervical CT:No acute abnormality. Degenerative spondylosis. --Lumbar CT:No acute abnormality. No stenosis. -Thoracic CT: No acute abnormality. UA is unremarkable Procalcitonin negative Blood cultures negative Resp PCR negative -TSH normal --S/P S/P LP on 10/06/23 --Patient could not get MRI spine due to severe claustrophobia CSF analysis ruled out CIVIL DRAFTSMAN infection Empirical antibiotic and antifungal discontinued Appreciate neurology input Completed 5 day course of IVIGs NIF PRN MRI brain, spine pending: Deferred on multiple occasions due to claustrophobia --CSF studies, immunological tests pending -serum GB antibodies pending Continue PT/OT Needs follow-up with neurology on discharge Generalized weakness improved Plan to be discharged to correction[facility] facility today Hyponatremia Likely due to IVIGs, Trileptal Serum osmolality 278 Urine osmolality 374 Urine sodium 107 TSH normal Continue fluid restriction Monitor sodium levels closely Appreciate nephrology input IV Lasix, urea discontinued 132 today Lasix discontinued Need to repeat BMP in 1 week on discharge Chest pain, resolved Sinus bradycardia EKG reviewed Initial troponin negative CTA chest negative TTE :Mild concentric LVH, EF of 65 to 70%, grade 1 diastolic dysfunction, trace aortic regurgitation, mild aortic root dilatation of 4.2 cm Monitor History of hepatitis Hep C ab +, but RNA negative Mild transaminitis ? Secondary to IVIG's Avoid hepatotoxic agents as able Monitor LFTs LFTs trended down Left thyroid nodule Incidental finding on CT CT showed:Left thyroid nodule measuring 2 cm. Further workup as outpatient BPH Continue home medications Failed voiding trial earlier Monitor urine output as patient has h/o intermittent straight cath at long-term per RN Continue Larson for now Depression Continue home medications DVT Px: Lovenox SQ Code Status Full code Disposition [facility] facility Admission and Anticipated Discharge Date Admission Date: October 05, 2023 Subjective States feeling better today No new complaints Discussed with nephrology today Sodium levels improved to 132 today Denies any chest pain, dyspnea, nausea, vomiting, abdominal pain Penitentiary guards at bedside Review of Systems Review of Systems: All systems reviewed & are unremarkable except as noted in Subjective Physical Exam Physical Exam: Physical Exam: Vitals signs as noted above General Appearance:Moderately built and nourished, no apparent distress Head: normocephalic, Atraumatic Eyes: normal inspection, EOMI Neck: supple, Trachea midline Respiratory/Chest: Normal breath sounds, CTA, No accessory muscle use Cardiovascular: S1, S2, No murmur Abdomen/GI:Soft, Non tender, Bowel sounds present Extremities/Musculoskeletal:normal inspection, no edema Neurologic/Psych:AAOX3, grossly no focal neurological deficits Skin: normal color, warm Results & Data Results & Data Vital Signs (Past 12 Hours) Vital Signs Temp Pulse Resp BP Pulse Ox O2 Del Method 10/14/23 08:00 36.7 C 88 16 111/73 96 Room Air 10/14/23 03:18 36.4 C L 80 18 123/77 92 Room Air Laboratory Results [facility] 10/14/23 06:40 Sodium 132 L Potassium 4.7 Chloride 103 Carbon Dioxide 23 BUN 38 H Creatinine 0.99 Glucose 95 Calcium 10.0
--- NOTE | 2023-10-14 12:08 | Discharge Summary ---
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 Admission Data Admit Date/Time: 10/05/23 03:12 Attending Provider: Jarrod Rangel Admit Provider: Augustin Nguyen Primary Care Provider: Immanuel KAY Other Providers: Malina Hamm; Augustin Nguyen; Oumou Tariq; Cesar Sommer; Oumou Limon; Raymond Franklin; Samir Birmingham; Jeanmarie Potter; Lars Montemayor; Nica Yang; Markie Drake; Brandon Garnica; Nilo Oliva; Codey Amin; Gloria Vanessa; Giuliana Craig; Lars Thomas; Violet Cordoba; La Nena Gutierrez; Gianni Rose; Brisa Covarrubias; Felice Acosta; Zack Palacios; Nidhi Santoro
[2023-10-16 18:23] LABS: CSF, LDH 11 U/L (<=25); IgG CSF 2.3 mg/dL (0.8-7.7); IgG Index, CSF 0.53 (<0.70); IgG Serum 1040 mg/dL (600-1640); Lyme DNA PCR CSF or Synovial Not Detected (Not Detected); Lyme DNA Source CSF; Lyme IgG Band Pattern CSF DNR; Lyme IgG CSF NO BANDS DETECTED; Lyme IgM Band Pattern CSF DNR; Lyme IgM CSF NO BANDS DETECTED; Myelin Basic Protein <2.0 mcg/L (<=4.0); Oligoclonal Bands IgG, CSF Absent (Absent); Synthesis Rate, IgG CSF -2.3 mg/24 h (-9.9-3.3); VDRL Qualitative CSF Nonreactive (Nonreactive)
== END 2023-10-14 14:54 | DRG 95 ==
LOC: ED 18:41 → EDINP 10-05 03:12 → SUATTDRO 10-05 03:12 → 1E 10-05 04:08 → 2S 10-08 16:10